=== PATIENT | female | born 1960 | race Caucasian/White ===

== ENCOUNTER → 2017-04-13 14:52 | Outpatient (CLI) | payer BC, SELFPAY ==
--- NOTE | 2017-04-13 14:59 | HPBI_ITS ---
MAMMOGRAPHY - BILATERAL SCREENING REASON FOR EXAM: Female, 56 years old. Routine annual screening examination. PERTINENT HISTORY: Grandmother with breast cancer. Aunt with breast cancer. TECHNIQUE: Digital bilateral breast angeles (3D mammographic acquisition) in the CC and MLO projections. 2-D mediolateral oblique (MLO) and craniocaudad (CC) views of both breasts were obtained. CAD: Full Field Digital Mammography with Computer Added Detection was performed. COMPARISON: Comparison is made with prior outside examination dated March 20, 2016. FINDINGS: Breast Composition: The breasts are extremely dense, which lowers the sensitivity of mammography. There are multiple well-defined nodular densities in both breasts. These most likely represent cysts. These have decreased both in size and numbers as compared to prior study. If there is no history of prior sonogram, correlation with bilateral ultrasound of the breast is recommended. No other significant abnormalities are identified. HPBI/SCREENING MAMM (CAD), BILAT IMPRESSION: Multiple bilateral breast nodules as described. These have decreased in size and number as compared to prior study. Correlation with ultrasound is recommended if none has been done previously. ASSESSMENT CATEGORY: BIRADS Category 0: Incomplete. Need additional imaging evaluation. A letter regarding these results will be sent to the patient by the facility within 30 days. Approximately 10% of breast cancers are not detected by mammography. A normal mammogram should not delay biopsy of a clinically suspicious abnormality. [id number] Electronically Signed: William Vasquez MD at 8:22 EST Tel [phone], Service support ,
== END ==
PROVIDERS: Visit Provider Obstetrics & Gynecology
DX: Z12.31 Encounter for screening mammogram for malignant neoplasm of breast (principal)
CPT/HCPCS: 77063; 77067

== ENCOUNTER → 2017-04-18 13:57 | Outpatient (CLI) | payer BC, SELFPAY ==
--- NOTE | 2017-04-18 13:59 | US_ITS ---
STUDY: ULTRASOUND BREAST - RIGHT REASON FOR EXAM: Female, 56 years old. A normal mammogram. TECHNIQUE: Axial and longitudinal images of the RIGHT breast were performed with a high resolution ultrasound transducer. COMPARISON: Comparison is made with prior mammogram dated April 13, 2017. FINDINGS: RIGHT Breast: Multiple cysts are seen. The largest measures 3.2 cm x 3 cm x 1 cm. This is at the 1:00 position breast by 1 cm from the nipple. IMPRESSION: Multiple cysts are seen throughout the breasts. ASSESSMENT CATEGORY: BIRADS Category 2: Benign. A letter regarding these results will be sent to the patient by the facility within 30 days. Electronically Signed: William Vasquez MD at 15:01 EST Tel [phone], Service support , STUDY: ULTRASOUND BREAST - LEFT REASON FOR EXAM: Female, 56 years old. Abnormal screening mammogram. TECHNIQUE: Axial and longitudinal images of the LEFT breast were performed with a high resolution ultrasound transducer. COMPARISON: Comparison is made with prior mammogram dated April 13, 2017. FINDINGS: LEFT Breast: Multiple cysts are seen. The largest is at the 3:00 position breast a 1 cm from nipple. This measures 2.7 cm x 2.1 cm x 0.9 cm. There is also evidence of a 1.6 cm x 1.5 cm x 1.3 cm cyst at the 4:00 position breast and 1 cm from nipple. Low-level echoes are seen within it. US/Breast Complete Bilateral IMPRESSION: Multiple cysts. Routine annual mammographic follow-up is recommended. ASSESSMENT CATEGORY: BIRADS Category 2: Benign. A letter regarding these results will be sent to the patient by the facility within 30 days. Electronically Signed: William Vasquez MD at 15:02 EST Tel [phone], Service support ,
== END ==
PROVIDERS: Visit Provider Nurse Practitioner Women's Health
DX: N60.01 Solitary cyst of right breast (principal)
CPT/HCPCS: 76641

== ENCOUNTER → 2018-05-30 07:10 | Outpatient (CLI) | payer BC, SELFPAY ==
--- NOTE | 2018-05-30 07:14 | BI_ITS ---
MAMMOGRAPHY - BILATERAL SCREENING 3-D PARKER SYNTHESIS REASON FOR EXAM: Female, 57 years old. Bilateral Screening 3-D tomosynthesis PERTINENT HISTORY: Family history of breast cancer in maternal grandmother, maternal aunt and maternal first cousin. History of bilateral breast aspirations with multiple cysts. TECHNIQUE: 2-D mammograms and 3-D Parker synthesis of the breast (s) were performed. CAD was performed. COMPARISON: April 13, 2017 FINDINGS: The breast composition is heterogeneously dense that can obscure small breast masses. There are multiple partially obscured masses in both breasts compatible with cysts. Scattered benign calcifications are seen. No dense spiculated masses or suspicious microcalcifications are identified. No architectural distortion is identified. There is no skin thickening or retraction. There has been no significant change since the prior study. BI/SCREENING MAMM (CAD), BILAT IMPRESSION: Stable findings compatible with cysts bilaterally. Routine yearly mammograms recommended. ASSESSMENT CATEGORY: BIRADS Category 2: Benign. A letter regarding these results will be sent to the patient by the facility within 30 days. FOLLOW UP RECOMMENDATION: Yearly follow up mammogram recommended. (A) Approximately 10% of breast cancers are not detected by mammography. A normal mammogram should not delay biopsy of a clinically suspicious abnormality. Electronically Signed: Derek Beltrán MD at 16:34 EDT , Service support ,
== END ==
PROVIDERS: Referring Provider Obstetrics & Gynecology; Visit Provider Obstetrics & Gynecology
DX: Z12.31 Encounter for screening mammogram for malignant neoplasm of breast (principal)
CPT/HCPCS: 77063; 77067

== ENCOUNTER → 2018-08-07 17:05 | Outpatient (CLI) | payer BC, SELFPAY ==
[2018-08-07 16:32] VITALS: BMI 25.0
[2018-08-13 09:44] LABS: HPV APTIMA, High Risk Negative (Negative)
== END ==
PROVIDERS: Referring Provider Obstetrics & Gynecology; Visit Provider Obstetrics & Gynecology
DX: Z12.4 Encounter for screening for malignant neoplasm of cervix (principal)
CPT/HCPCS: 87624; 88175; G0145

== ENCOUNTER → 2019-07-08 10:38 | Outpatient (CLI) | payer BC, SELFPAY ==
[2018-08-07 16:32] VITALS: BMI 25.0
--- NOTE | 2019-07-08 10:41 | BI_ITS ---
MAMMOGRAPHY - BILATERAL SCREENING REASON FOR EXAM: Female, 59 years old. Routine annual screening examination. PERTINENT HISTORY: Grandmother with breast cancer. Aunt with breast cancer. TECHNIQUE: Digital bilateral breast parker (3D mammographic acquisition) in the CC and MLO projections. 2-D mediolateral oblique (MLO) and craniocaudad (CC) views of both breasts were obtained. CAD: Full Field Digital Mammography with Computer Added Detection was performed. COMPARISON: Comparison is made with prior examination dated May 30, 2018 and April 13, 2017. FINDINGS: Breast Composition: The breasts are extremely dense, which lowers the sensitivity of mammography. Once again, there are multiple well-defined nodules in both breasts more prominent and larger in the right breast as compared to the left side. These are essentially unchanged and most likely of present multiple cysts. Prior ultrasound of the right breast dated April 18, 2017 and ultrasound of the left breast demonstrated multiple cysts bilaterally. Stable benign-appearing small axillary lymph nodes. No other significant abnormalities are identified. There has been no significant change since the prior study. BI/SCREEN MAMM (CAD) W/PARKER BILAT IMPRESSION: Stable bilateral screening mammogram. Yearly follow-up mammogram recommended. (A) ASSESSMENT CATEGORY: BIRADS Category 2: Benign. A letter regarding these results will be sent to the patient by the facility within 30 days. Approximately 10% of breast cancers are not detected by mammography. A normal mammogram should not delay biopsy of a clinically suspicious abnormality. [id number] Electronically Signed: William Vasquez, at 11:39 EDT , Service support ,
== END ==
PROVIDERS: Visit Provider Obstetrics & Gynecology
DX: Z12.31 Encounter for screening mammogram for malignant neoplasm of breast (principal)
CPT/HCPCS: 77063; 77067

== ENCOUNTER → 2021-01-17 15:53 | Outpatient (CLI) | payer BC, SELFPAY ==
--- NOTE | 2021-01-17 15:56 | BI_ITS ---
MAMMOGRAPHY - BILATERAL SCREENING REASON FOR EXAM: Female, 60 years old. Routine annual screening examination. PERTINENT HISTORY: Grandmother with breast cancer. Aunt with breast cancer. History of bilateral breast aspirations. TECHNIQUE: Digital bilateral breast parker (3D mammographic acquisition) in the CC and MLO projections. 2-D mediolateral oblique (MLO) and craniocaudad (CC) views of both breasts were obtained. CAD: Full Field Digital Mammography with Computer Added Detection was performed. COMPARISON: Comparison is made with prior study dated 07/08/2019 and 05/30/2018. FINDINGS: Breast Composition: The breasts are heterogeneously dense, which may obscure small masses. There are no dominant masses or suspicious calcifications. Since prior study, there has been a decrease in the size of the nodular densities in both breasts. These have been demonstrated to be cysts in the past. There is a residual prominent 2.2 cm x 2 cm nodule in the upper medial portion of the right breast. No other significant abnormalities are identified. BI/SCRN MAMM (CAD)W/PARKER BILAT IMPRESSION: Interval decrease in size of the previously seen nodular densities in both breasts as described. Prior sonogram demonstrated these to be multiple cysts. Yearly follow-up mammogram recommended. (A) ASSESSMENT CATEGORY: BIRADS Category 2: Benign. A letter regarding these results will be sent to the patient by the facility within 30 days. Approximately 10% of breast cancers are not detected by mammography. A normal mammogram should not delay biopsy of a clinically suspicious abnormality. [id number] Electronically Signed: William Vasquez MD at 9:07 EST , Service support ,
== END ==
PROVIDERS: Visit Provider Obstetrics & Gynecology
DX: Z12.31 Encounter for screening mammogram for malignant neoplasm of breast (principal); Z80.3 Family history of malignant neoplasm of breast
CPT/HCPCS: 77063; 77067

== ENCOUNTER → 2022-02-14 | Outpatient (CLI) | payer BC, SELFPAY ==
--- NOTE | 2022-02-14 09:13 | BI_ITS ---
MAMMOGRAPHY - BILATERAL SCREENING REASON FOR EXAM: Female, 61 years old. Routine annual screening examination. PERTINENT HISTORY: Grandmother with breast cancer. Aunt with breast cancer. History of prior bilateral breast aspirations. TECHNIQUE: Digital bilateral breast parker (3D mammographic acquisition) in the CC and MLO projections. 2-D mediolateral oblique (MLO) and craniocaudad (CC) views of both breasts were obtained. CAD: Full Field Digital Mammography with Computer Added Detection was performed. COMPARISON: Comparison is made with prior study 01/17/2021 and 07/08/2019. FINDINGS: Breast Composition: The breasts are heterogeneously dense, which may obscure small masses. Multiple bilateral well-defined nodules are seen in both breasts. The largest nodule in the left breast is in the retroareolar region and measures 2.9 size by 2.1 cm. The largest nodule in the left breast measures 2.2 cm x 1.6 cm. This is in the medial inferior aspect of the right breast. Correlation with ultrasound is recommended. No other significant abnormalities are identified. BI/SCRN MAMM (CAD)W/PARKER BILAT IMPRESSION: Bilateral breast nodules as described. Correlation with ultrasound is recommended. ASSESSMENT CATEGORY: BIRADS Category 0: Incomplete. Need additional imaging evaluation. A letter regarding these results will be sent to the patient by the facility within 30 days. Approximately 10% of breast cancers are not detected by mammography. A normal mammogram should not delay biopsy of a clinically suspicious abnormality. [id number] Electronically Signed: William Vasquez MD at 13:45 EST ,
== END | disposition home or self-care (01) ==
LOC: OPBI 09:11
PROVIDERS: Visit Provider Obstetrics & Gynecology
DX: Z12.31 Encounter for screening mammogram for malignant neoplasm of breast (principal); N63.10 Unspecified lump in the right breast, unspecified quadrant; Z80.3 Family history of malignant neoplasm of breast; N63.20 Unspecified lump in the left breast, unspecified quadrant
CPT/HCPCS: 77063; 77067

== ENCOUNTER → 2022-02-16 | Outpatient (CLI) | payer BC, SELFPAY ==
[2022-02-16 09:35] LABS: Hemoglobin A1c 5.4 % (3.8-5.6)
[2022-02-16 09:52] LABS: Vitamin D,25 Hydroxy 25.7 ng/mL
[2022-02-16 09:59] LABS: Cholesterol 294 mg/dL (200); High Density Lipoprotein 66 mg/dL; Triglycerides 130 mg/dL; Very Low Density Lipoprotein 26 mg/dL (5-40)
[2022-03-01 13:33] LABS: HPV APTIMA, High Risk Negative (Negative)
== END | disposition home or self-care (01) ==
PROVIDERS: Referring Provider Obstetrics & Gynecology; Visit Provider Obstetrics & Gynecology
DX: Z01.419 Encounter for gynecological examination (general) (routine) without abnormal findings (principal)
CPT/HCPCS: 36415; 80061; 82306; 83036; 84443; 87624; 88175; G0145

== ENCOUNTER → 2022-02-21 | Outpatient (CLI) | payer BC, SELFPAY ==
--- NOTE | 2022-02-21 07:52 | US_ITS ---
STUDY: ULTRASOUND BREAST - RIGHT REASON FOR EXAM: Female, 61 years old. Abnormal screening mammogram. TECHNIQUE: Axial and longitudinal images of the RIGHT breast were performed with a high resolution ultrasound transducer. # OF IMAGES: 56 COMPARISON: Comparison is made with prior mammogram dated 02/14/2022 Prior ultrasound of the right breast dated 04/18/2017. FINDINGS: RIGHT Breast: The inferior aspect of the right breast was examined with ultrasound. There is a 2.0 cm x 2 cm by 0.8 cm cyst at the 3 o''clock position the breast sonogram is from nipple. There is a 0.9 cm x 1 cm x 0.7 cm hypoechoic slightly lobular nodule at the 9 o''clock position of the breast at 1 cm from nipple. Increased vascularity is seen. Biopsy recommended. There is also evidence of a 1.3 cm x 1.1 cm x 0.7 cm predominantly cystic nodule with low-level echoes within it at the 2 o''clock position of the breast at 3 cm from the nipple. IMPRESSION: Dominant cyst as described. Hypoechoic slightly lobular nodules at the 9 o''clock and 2 o''clock position the breast as described. Biopsy recommended. ASSESSMENT CATEGORY: BIRADS Category 4: Suspicious - Biopsy Should Be Considered. A letter regarding these results will be sent to the patient by the facility within 30 days. Electronically Signed: William Vasquez MD at 12:24 EST , STUDY: ULTRASOUND BREAST - LEFT REASON FOR EXAM: Female, 61 years old. Abnormal screening mammogram. TECHNIQUE: Axial and longitudinal images of the LEFT breast were performed with a high resolution ultrasound transducer. # OF IMAGES: 56 COMPARISON: Comparison is made with prior mammogram dated 02/14/2022 and prior sonogram dated 04/18/2017. FINDINGS: LEFT Breast: There is a 2.8 synovitis 0.5 cm x 1.5 cm cyst at the 9 o''clock position of the breast. 1 cm from nipple. This corresponds to the mammographic findings. There is also evidence of a 1.9 cm x 2.2 cm x 1.1 cm cyst in the retroareolar region. US/Breast Limited Unilateral IMPRESSION: The mammographic findings correspond to the 2 cysts as described. ASSESSMENT CATEGORY: BIRADS Category 2: Benign. A letter regarding these results will be sent to the patient by the facility within 30 days. Electronically Signed: William Vasquez MD at 12:26 EST ,
== END | disposition home or self-care (01) ==
PROVIDERS: Visit Provider Obstetrics & Gynecology
DX: R92.2 Inconclusive mammogram (principal); N63.10 Unspecified lump in the right breast, unspecified quadrant
CPT/HCPCS: 76642

== ENCOUNTER → 2023-03-06 | Outpatient (CLI) | payer BC, SELFPAY ==
--- NOTE | 2023-03-06 12:17 | BI_ITS ---
MAMMOGRAPHY - BILATERAL SCREENING 3-D TOMOSYNTHESIS REASON FOR EXAM: Female, 62 years old. Routine annual screening mammogram. PERTINENT HISTORY: History of bilateral prior breast aspirations. Grandmother and contact with breast cancer, ages not identified. TECHNIQUE: 2-D mammograms and 3-D Tomosynthesis of the breast (s) were performed. CAD was performed. COMPARISON: February 14, 2022, January 17, 2021 FINDINGS: Stable heterogeneously dense fibroglandular tissue with multiple partially obscured circumscribed nodules compatible with cysts, left greater than right. Normal lymph nodes and scattered benign calcifications, unchanged. No dominant masses, suspicious microcalcifications, asymmetries, skin thickening or nipple retraction. BI/SCRN MAMM (CAD)W/PARKER BILAT IMPRESSION: No mammographic signs of malignancy. Routine annual screening mammogram recommended. ASSESSMENT CATEGORY: BIRADS Category 2: Benign. A letter regarding these results will be sent to the patient by the facility within 30 days. FOLLOW UP RECOMMENDATION: Yearly follow up mammogram recommended. (A) Approximately 10% of breast cancers are not detected by mammography. A normal mammogram should not delay biopsy of a clinically suspicious abnormality. Electronically Signed: Derek Beltrán MD at 10:29 EST ,
== END | disposition home or self-care (01) ==
LOC: OPBI 12:16
PROVIDERS: Referring Provider Obstetrics & Gynecology; Visit Provider Obstetrics & Gynecology
DX: Z12.31 Encounter for screening mammogram for malignant neoplasm of breast (principal)
CPT/HCPCS: 77063; 77067

== ENCOUNTER → 2024-04-07 | Outpatient (CLI) | payer SELFPAY ==
--- NOTE | 2024-04-07 15:30 | BI_ITS ---
MAMMOGRAPHY - BILATERAL SCREENING REASON FOR EXAM: Female, 63 years old. Routine annual screening examination. PERTINENT HISTORY: Grandmother with breast cancer. Aunt with breast cancer. TECHNIQUE: Digital bilateral breast parker (3D mammographic acquisition) in the CC and MLO projections. 2-D mediolateral oblique (MLO) and craniocaudad (CC) views of both breasts were obtained. CAD: Full Field Digital Mammography with Computer Added Detection was performed. COMPARISON: Comparison is made with prior study March 06, 2023 and February 14, 2022. FINDINGS: Breast Composition: The breasts are extremely dense, which lowers the sensitivity of mammography. Once again, there are scattered nodular densities in both breasts more prominent on the left side. Correlation with ultrasound recommended. No other significant abnormalities are identified. There has been no significant change since the prior study. BI/SCRN MAMM (CAD)W/PARKER BILAT IMPRESSION: Stable bilateral screening mammogram. Sonographic correlation recommended. ASSESSMENT CATEGORY: BIRADS Category 0: Incomplete. Need additional imaging evaluation. A letter regarding these results will be sent to the patient by the facility within 30 days. Approximately 10% of breast cancers are not detected by mammography. A normal mammogram should not delay biopsy of a clinically suspicious abnormality. [id number] Electronically Signed: William Vasquez MD at 11:15 EST ,
--- NOTE | 2024-04-11 13:31 | US_ITS ---
PROCEDURE: BREAST LIMITED bilateral. REASON FOR EXAM: Bilateral breast lumps. COMPARISON: Comparison is made with prior mammogram dated April 07, 2024. TECHNIQUE: Targeted bilateral breast ultrasound. FINDINGS: RIGHT: Ultrasound targeted to the mid medial inferior aspect of the right breast. Multiple cysts are seen. The largest cluster of cysts is seen in the inferior retroareolar region measuring 4.3 cm x 3.3 cm x 1.7 cm. There is also evidence of a 2.1 cm x 2 cm x 1 cm cyst at the 6 o'clock position of the breast at 3 cm from nipple as well as a 1.7 cm x 2.7 cm x 1.2 cm cyst in the superior retroareolar region of the right breast. LEFT: Ultrasound targeted to the retroareolar region at the left breast. Multiple cysts are seen. The largest cyst is in the superior retroareolar region measuring 4.6 cm x 3.8 cm 1.7 cm. A similar appearing cyst is seen adjacent to this measuring 3.5 cm x 4.1 cm x 1.5 cm. There is also evidence of a cluster of cysts in the retro areolar region measuring 2.1 cm x 2.5 cm x 0.9 cm. US/Breast Limited Unilateral IMPRESSION: Multiple bilateral breast cysts. BI-RADS 2: BENIGN. RECOMMEND ANNUAL MAMMOGRAPHIC SCREENING. BI-RADS 2: BENIGN. RECOMMEND ANNUAL MAMMOGRAPHIC SCREENING. Reading Location: [place] [id number]
== END | disposition home or self-care (01) ==
PROVIDERS: Referring Provider Obstetrics & Gynecology; Visit Provider Obstetrics & Gynecology
DX: Z12.31 Encounter for screening mammogram for malignant neoplasm of breast (principal); Z80.3 Family history of malignant neoplasm of breast
CPT/HCPCS: 77063; 77067

== ENCOUNTER 2024-04-11 13:20 | Outpatient (CLI) | payer BC, SELFPAY ==
--- NOTE | 2024-04-11 13:40 | US_ITS ---
EXAM: BREAST LIMITED UNILATERAL CLINICAL HISTORY: Abnormal screening mammogram. COMPARISON: Comparison is made with prior mammogram dated April 07, 2024. TECHNIQUE: Imaging of the central portion of the left breast was obtained. FINDINGS: Multiple cysts are seen as dictated on prior examination. US/Breast Limited Unilateral IMPRESSION: Multiple cysts. Reading Location: [facility]
== END 2024-04-11 23:59 | disposition home or self-care (01) ==
PROVIDERS: Referring Provider Obstetrics & Gynecology; Visit Provider Obstetrics & Gynecology
DX: R92.8 Other abnormal and inconclusive findings on diagnostic imaging of breast (principal); N60.02 Solitary cyst of left breast
CPT/HCPCS: 76642

== ENCOUNTER 2024-06-16 17:20 | Inpatient (IN) | payer BC, SELFPAY ==
--- NOTE | 2024-06-11 13:57 | PAT.ANE_ITS ---
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 When Was Last Pacemaker Check QUESTION #4 FULL TEXT: You/Your Family Experience fever (hyperthermia) with Anesthesia Last Oral Intake Last Oral intake: Last Oral Intake NPO since Meds taken in AM with sips of water? Meds patient instructed to take am of surgery PONV PONV - wallpaper scraper: PONV - wallpaper scraper Female Yes 06/11/24 13:51 HX of Motion Sickness No 06/11/24 13:51 HX of N/V After Surgery No 06/11/24 13:51 Non-Smoker Yes 06/11/24 13:51 Duration of Surgery greater No 06/11/24 13:51 than 60 minutes Number of Risk Factors 2 06/11/24 13:51 PONV Score Moderate Risk 06/11/24 13:51 Height & Weight Height & Weight: Anesthesia: Height & Weight Height 5 ft 4 in 04/23/24 08:26 Respiratory Assessment Respiratory Assessment - wallpaper scraper: Respiratory Tract Infection Hx - wallpaper scraper Hx Respiratory Tract Infection Yes: stomach flu 06/07/24 06/11/24 13:51 STOP Sleep Apnea STOP Sleep Apnea - wallpaper scraper: STOP Sleep Apnea - wallpaper scraper Hx Hypertension No 06/11/24 13:51 Hx Sleep Apnea No 06/11/24 13:51 CPAP No 01/18/17 09:51 BIPAP No 01/11/17 10:22 Do you snore loudly (louder No 06/11/24 13:51 than talking or can be heard Do you often feel tired/ No 06/11/24 13:51 fatigued/ sleepy during daytime? Has anyone observed you stop No 06/11/24 13:51 breathing during sleep? STOP Results Negative 06/11/24 13:51 QUESTION #5 FULL TEXT : Do you snore loudly (louder than talking or can be heard through closed doors)? 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 Specify any problems Hx of Preganancy in last 3 N/A 06/11/24 13:51 Months Nurse Filling Out Transfusion NBUCHER 06/11/24 13:51 & Questions: Date: 06/11/24 06/11/24 13:51 Time: 13:52 06/11/24 13:51 Patient unable to answer at this time (ie. confused, unrespo /Reproduction History /Reproductive History - wallpaper scraper: /Reproductive Hx- wallpaper scraper Hx Now No 06/11/24 13:51 Gestational Age (in weeks): EDC: Hx Hx Para Hx Section SAB No 06/11/24 13:51 PFSH Medical History Wears glasses Wears contact lenses Former smoker Home Medications ?Medication ?Instructions ?Recorded ?Last Taken ?Type estradiol 0.01% (0.1 mg/gram) See Rx Instructions vagi nal 04/21/24 Unknown Rx vaginal cream (Estrace) .COMPLEX #42.5 grams diphenhydramine HCl 25 mg capsule 25 mg PO QHS PRN sle ep 04/23/24 Unknown History (Sleep Aid (diphenhydramine)) Allergy/AdvReac Type Severity Reaction Status Date / Time No Known Allergies Allergy Verified 06/11/24 13:50 Family History Father Cancer lung-smoking Mother Diabetes Grandmother Breast cancer Aunt Breast cancer Surgical History Hx of colonoscopy varicose vein surgery H/O breast biopsy Social History (Updated 04/23/24 @ 08:22 by Gertrude Sarmiento) household members: spouse current occupational status: employed Smoking Status: Former smoker alcohol intake: current details: social substance use type: does not use caffeine: Yes frequency: 1-2 times per week seatbelt use: always do you feel safe at home: Yes additional [facility] Patient works at [employer] Audit: Pertinent Findings Pertinent Findings EKG Perinent findings: 03/03/2015. Sinus bradycardia 51 bpm. Low voltage QRS. Cannot rule out anterior infarct, age undetermined. Recommendation Anesthesia Recommendation Anesthesia recommendation: OPTIMIZED for anesthesia
[2024-06-16] VITALS (20 sets, daily range): BP systolic 78–114; BP diastolic 49–75; PULSE 56–96; RESP 12–18; TEMP 36.1–37.2; O2SAT 89–100; BMI 29.1
--- NOTE | 2024-06-16 07:59 | PCM.PRE.AN2 ---
ASA Classification* ASA Classification ASA Classification: 2 Assessment & Plan Anesthesia* Anesthesia Assessment Anesthesia Assessment: Discussed sedation and/or anesthesia options, risks, benefits, and alternatives with patient/parents/legal guardian/POA. Questions invited. The patient/parents/legal guardian/POA seems to understand and agrees to proceed with anesthesia plan. Reviewed the physical assessment, medical history, allergy history and patient home medications list prior to surgery/procedure/anesthetic and documented any changes. Performed airway and anesthesia risk assessments. Anesthesia Type Anesthesia Type: MAC Anesthesia Focused Assessment* Temperature: 97.0 F Pulse Rate: 91 Blood Pressure: 107/74 Respiratory Rate: 18 Pulse Ox: 96 Airway Assessment Mouth opens: >3 cm Mallampati Score: II Focused Labs Anesthesia Preop lab: CBC WBC 6.7 K/mm3 (4.4-11.0) 01/11/17 10:35 01/11/17 RBC 4.29 M/mm3 (4.2-5.4) 01/11/17 10:35 01/11/17 Hgb 13.3 g/dl (12.0-15.0) 01/11/17 10:35 01/11/17 Hct 41.7 % (37-47) 01/11/17 10:35 01/11/17 Plt Count 343 K/mm3 (150-450) 01/11/17 10:35 01/11/17 CHEMISTRY Potassium 3.9 mmol/L (3.5-5.1) 01/11/17 10:35 01/11/17 Sodium 141 mmol/L (136-145) 01/11/17 10:35 01/11/17 BUN 20 mg/dL (7-18) H 01/11/17 10:35 01/11/17 Creatinine 0.73 mg/dL (0.55-1.02) 01/11/17 10:35 01/11/17 Glucose 83 mg/dL (70-110) 01/11/17 10:35 01/11/17 TSH 1.50 uIU/mL (0.358-3.74) 02/16/22 09:03 02/16/22 COAG Pre-Assessment Diagnosis/Proposed Procedure Planned Operative Procedure(s): cscope Anesthesia History 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 When Was Last Pacemaker Check QUESTION #4 FULL TEXT: You/Your Family Experience fever (hyperthermia) with Anesthesia Last Oral Intake Last Oral intake: Last Oral Intake NPO since 05:00 06/16/24 07:49 Meds taken in AM with sips of water? Meds patient instructed to take am of surgery PONV PONV - grinder setup operator: PONV - grinder setup operator Female Yes 06/11/24 13:51 HX of Motion Sickness No 06/11/24 13:51 HX of N/V After Surgery No 06/11/24 13:51 Non-Smoker Yes 06/11/24 13:51 Duration of Surgery greater No 06/11/24 13:51 than 60 minutes Number of Risk Factors 2 06/11/24 13:51 PONV Score Moderate Risk 06/11/24 13:51 Height & Weight Height & Weight: Anesthesia: Height & Weight Height 5 ft 4 in 06/16/24 07:49 Weight: 77 kg 06/16/24 07:49 Body Mass Index (BMI) 29.1 06/16/24 07:49 Respiratory Assessment Respiratory Assessment - grinder setup operator: Respiratory Tract Infection Hx - grinder setup operator Hx Respiratory Tract Infection Yes: stomach flu 06/07/24 06/11/24 13:51 STOP Sleep Apnea STOP Sleep Apnea - grinder setup operator: STOP Sleep Apnea - grinder setup operator Hx Hypertension No 06/11/24 13:51 Hx Sleep Apnea No 06/11/24 13:51 CPAP No 01/18/17 09:51 BIPAP No 01/11/17 10:22 Do you snore loudly (louder No 06/11/24 13:51 than talking or can be heard Do you often feel tired/ No 06/11/24 13:51 fatigued/ sleepy during daytime? Has anyone observed you stop No 06/11/24 13:51 breathing during sleep? STOP Results Negative 06/11/24 13:51 QUESTION #5 FULL TEXT : Do you snore loudly (louder than talking or can be heard through closed doors)? 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 Specify any problems Hx of Preganancy in last 3 N/A 06/11/24 13:51 Months Nurse Filling Out Transfusion NBUCHER 06/11/24 13:51 & Questions: Date: 06/11/24 06/11/24 13:51 Time: 13:52 06/11/24 13:51 Patient unable to answer at this time (ie. confused, unrespo /Reproduction History /Reproductive History - grinder setup operator: /Reproductive Hx- grinder setup operator Hx Now No 06/11/24 13:51 Gestational Age (in weeks): EDC: Hx Hx Para Hx Section SAB No 06/11/24 13:51 PFSH Medical History Wears glasses Wears contact lenses Former smoker Home Medications ?Medication ?Instructions ?Recorded ?Last Taken ?Type estradiol 0.01% (0.1 mg/gram) See Rx Instructions vaginal 04/21/24 Unknown Rx vaginal cream (Estrace) .COMPLEX #42.5 grams diphenhydramine HCl 25 mg capsule 25 mg PO QHS PRN sleep 04/23/24 06/15/24 History (Sleep Aid (diphenhydramine)) Allergy/AdvReac Type Severity Reaction Status Date / Time No Known Allergies Allergy Verified 06/16/24 07:49 Family History Father Cancer lung-smoking Mother Diabetes Grandmother Breast cancer Aunt Breast cancer Surgical History Hx of colonoscopy varicose vein surgery H/O breast biopsy Social History household members: spouse current occupational status: employed Smoking Status: Former smoker alcohol intake: current details: social substance use type: does not use caffeine: Yes frequency: 1-2 times per week seatbelt use: always do you feel safe at home: Yes additional [facility] Patient works at [employer] Review of Systems (Anesthesia) ROS Narrative System reviewed and no additional complaints, except as documented.
--- NOTE | 2024-06-16 08:11 | HP.PCM_ITS ---
[facility] - General General Date of Service: 06/16/24 HPI Narrative GANESH ANAYA, is a 63 F who presents for a screening colonoscopy. Patient last colonoscopy was about 16 years ago normal per patient by Dr. Olvera. Patient denies any family history of colon cancer. Patient has bowel movements daily denies any blood. Patient denies any chronic abdominal pain/nausea/vomiting/reflux. PFSH Medical History Wears glasses Wears contact lenses Former smoker Home Medications ?Medication ?Instructions ?Recorded ?Last Taken ?Type estradiol 0.01% (0.1 mg/gram) See Rx Instructions vagi nal 04/21/24 Unknown Rx vaginal cream (Estrace) .COMPLEX #42.5 grams diphenhydramine HCl 25 mg capsule 25 mg PO QHS PRN sle ep 04/23/24 06/15/24 History (Sleep Aid (diphenhydramine)) Allergy/AdvReac Type Severity Reaction Status Date / Time No Known Allergies Allergy Verified 06/16/24 07:49 Family History Father Cancer lung-smoking Mother Diabetes Grandmother Breast cancer Aunt Breast cancer Surgical History Hx of colonoscopy varicose vein surgery H/O breast biopsy Social History household members: spouse current occupational status: employed Smoking Status: Former smoker alcohol intake: current details: social substance use type: does not use caffeine: Yes frequency: 1-2 times per week seatbelt use: always do you feel safe at home: Yes additional social history: Emir Varela Patient works at [employer] Past Medical/Surgical History Planned Operation Planned Operative Procedure(s): cscope S.O.S: No Previous Hospitalizations/Surgeries HX Hospitalizations: No HX of Surgeries: TUBAL LIGATION AGE 40 COLONOSCOPY AGE 50 left vein stripping 2015 Any Problems With Anesthesia: No You/Your Family Experience Fever (Hyperthermia) With Anes: No Cholinesterase deficiency: No Cardiovascular Hx Chest Pain within Last 2 months: No Hx of Irregular Heartbeat and/or Afib: No Hx Heart Attack: No Hx Congestive Heart Failure: No Hx Rheumatic Fever: No Hx Hypertension: No Hx Internal Defibrillator: No Hx Pacemaker: No Hx Cardiac Catheterization: No Hx Cardiac Surgery/Stents/Etc.: No Hx Stress Test: No Hx Pain in Legs when Walking/Leg Cramps: Yes (right leg pain) Respiratory Chronic Cough: No HX of Shortness of Breath: No Hoarseness: No Hx Chronic Obstructive Pulmonary Disease (COPD): No Hx Asthma: No Hx Emphysema: No Hx Sleep Apnea: No CPAP: No BIPAP: No Hx Respiratory Tract Infection/Cold (presently): Yes (stomach flu 06/07/24) Do You Snore Loudly (louder than talking or can be heard): No Do You Often Feel Tired/ Fatigued/ Sleepy Dring Daytime?: No Has Anyone Observed You Stop Breathing During Sleep?: No Result (for STOP score): Negative Hx Smoking: Yes (QUIT SMOKING 15-20 YEARS AGO) Smoking Status: Former smoker Gastrointestinal Hx Gastrointestinal Disorders: No Hx Gastrointestinal Bleed: No Hx Ulcer: No Hx Hiatal Hernia: No Difficulty Chewing/Swallowing: No Special diet followed at home: No Hx Unplanned Weight Loss of 20#: No HX Unplanned Weight Gain of 20#: No Neurological Hx Seizures: No HX Syncope/Blackout Spells/Unconsciousness: No Hx Transient Ischemic Attacks (TIA): No Hx Multiple Sclerosis: No Hx Parkinson's Disease: No Hx Head/Neck Injury: No Hx Headaches: No Hx Back Injury/Pain: No Recent Onset of Speech Difficulty: No Restless Legs: No Does patient have nerve stimulator: No Blood Disorder Hx Leukemia: No Bleeding Tendencies: No Hx Deep Vein Thrombosis: No Hx High Cholesterol: No Blood Transmitted Disease: No Hx Hepatitis: No Hx Cirrhosis: No Hx Anemia: No Hx Blood Disorders: No Reproduction : No Is Patient Lactating: No Hx Hysterectomy: No Hx Tubal Ligation: No Are You Post Menopause: Yes Genitourinary Hx Renal Disease: No Musculoskeletal Hx Arthritis: No Hx Rheumatoid Arthritis: No Hx Gout: No Recent Onset of an Orthopedic Problem: No Endocrine Hx Diabetes: No Thyroid Disease: No Hx Steroid Therapy: No Psycho/Social Hx Substance Use: No Hx Alcohol Use: Yes (1-2 BEERS/OR MIXED DRINK 5X/WEEK) Hx Anxiety: No Hx Depression: No Mental Illness: No Hx Dementia: No Miscellaneous Hx Cancer: No Recent Exposure to Contagious Disease: No Hx of C-Diff: No Any Loose Teeth: No (.) Allergies No Known Allergies Allergy (Verified 06/16/24 07:49) Maternal: Family History Father Cancer lung-smoking Mother Diabetes Grandmother Breast cancer Aunt Breast cancer - (The patient's father at the age of 73 with a history of lung cancer. Patient's mother at the age of 87 with a history of diabetes mellitus. Her mother with sepsis related to urosepsis.) Discharge Is Pt Admitted From a [facility], or a [facility]: No From the PAT History Number of Risk Factors: 2 Vital Signs Vital Signs Vital Signs: 06/16/24 07:49 06/16/24 07:49 06/16/24 07:59 Temperature 97.0 F L 97.0 F L Temperature Source Temporal Pulse Rate 91 91 Respiratory Rate 18 18 Respiratory Pattern Normal Blood Pressure 107/74 107/74 Blood Pressure Mean 85 Blood Pressure Source Monitor Blood Pressure Position Semi-Fowlers Blood Pressure Location Right Arm Pulse Ox 96 96 Oxygen Delivery Method Room Air Weight Weight: 169 lb 12.095 oz Body Mass Index (BMI) 29.1 Physical Exam Const alert, oriented x3 and no apparent distress HEENT normocephalic and head/scalp atraumatic Resp normal respiratory effort Cardio regular rate GI soft to palpation and non-tender; Negative for non-distended Palpation: Negative for guarding Extremity no clubbing, cyanosis or edema Skin no rashes or lesions noted Neuro CN's II-XII intact bilaterally Psych mental status grossly normal Assessment & Plan Assessment/Plan (1) Encounter for screening for malignant neoplasm of colon: Surgery Risks - Colonoscopy I discussed with the patient the risks of the procedure: Yes Risks Include but are not Limited To: Risks include but are not limited to: Bleeding, perforation requiring further surgery, inability to complete colonoscopy requiring barium enema.
--- NOTE | 2024-06-16 09:00 | COL._PTH ---
PATIENT: GANESH ANAYA LOC: MS3 U#:[id number] AGE/SX: 63/F ROOM: TN317 RE06/16/[address]: Dr. Parisa Banda MD : 1960 BED: 1 DIS: 06/20/2024 SPEC #: [id number] RECD: 06/17/24 09:00 STATUS: EUNICE ANGELINA #: [id number] JOANNE: 06/16/24 09:[address]: Parisa Banda DEPT: SURGICAL PATHOLOGY RECD BY: Rick Lawson ENTERED: 06/17/24 09:02 SP TYPE: COLON OTHR DR: No Primary Care Phys Tissues: A - Ileum, NOS Procedures: Surgery Specimen Level HEADER OPERATION: Laparoscopic, perforated appendectomy, conversion to open PRE-OP DIAGNOSIS: CT abdomen pelvis which is consistent with acute appendicitis-likely perforated with a small foci of air larger area of inflammation, encounter for screening for malignant neoplasm of colon TISSUE SUBMITTED: A- Ileocetomy MICROSCOPIC DIAGNOSIS A. Ileum and cecum, acute appendicitis, ileocecectomy: * Acute appendicitis with perforation and suppurative inflammation of adjacent pericolonic adipose. * Ileocecal valve with prominent reactive mucosal lymphoid tissue. * Viable proximal (ileal) end resection margin with no specific pathologic change. * Viable distal (cecal) end resection margin with focal acute inflammation and focal serosal adhesions. * Four pericolonic lymph nodes, benign (0/4). MICROSCOPIC DESCRIPTION Slides are reviewed. GROSS DESCRIPTION A. Received in formalin in a container labeled with the patient's name, date of , and ileocecectomy is an ileocecectomy specimen received with 2 stapled margins. The terminal ileum is 9.0 cm in length by 1.5 cm in diameter and the cecum is 9.2 x 5.5 x 4.5 cm. The serosa of the cecum exhibits dense and shaggy amaro-brown adhesions with adherent possible exudate. No intact appendix is discovered. The serosa of the ileum is unremarkable. The specimen is opened to reveal that the 0.2 x 0.2 cm appendiceal orifice is able to be probed through the dense adhesions with multiple possible shaggy perforations (inked blue). The possible tip appears obliterated. A 0.3 cm possible appendiceal lumen is identified; however, the majority of the probable appendiceal remnants are occupied by a large ?4 x 4 cm red and soft, apparent abscess cavity. No mass-like lesion is grossly recognized. The remaining mucosa is amaro-pink with typical transverse folds and an average wall thickness of 0.4 cm. Sectioning of the ileocecal valve reveals submucosal amaro-yellow, glistening adipose tissue. Network Desktop Support Specialist sections:A1. Proximal margin, en faceA2. Distal margin, en face and bisectedA3-4. Appendiceal orifice, bivalved with possible perforation in A3 (inked blue)A5-6. Possible obliterated tip of appendix, bisected (inked blue)A7-8. Abscess cavity with adherent exudateA9. Ileocecal valve with submucosal adipose tissue. [facility] 06-17-2024 CPT:48029
--- NOTE | 2024-06-16 09:00 | FLU_PTH ---
PATIENT: GANESH ANAYA LOC: MS3 U#:[id number] AGE/SX: 63/F ROOM: MO317 RE06/16/[address]: Dr. Parisa Banda MD : 1960 BED: 1 DIS: 06/20/2024 SPEC #: [id number] RECD: 06/16/24 09:56 STATUS: EUNICE REQ #: [id number] JOANNE: 06/16/24 09:[address]: Parisa Banda DEPT: CYTOLOGY RECD BY: Jami Henao ENTERED: 06/16/24 10:51 SP TYPE: Fluid OTHR DR: No Primary Care Phys Tissues: A - Cecum, NOS Procedures: Special Stain Group II Surgery Specimen Level IV Cytospin Fluid HEADER OPERATION: Colonoscopy, biopsy PRE-OP DIAGNOSIS: Encounter for screening for malignant neoplasm of colon TISSUE SUBMITTED: A- Fluid collected in Luki tube from cecum for cytology DIAGNOSIS CYTOLOGY A. Cecum fluid: * No malignant cells identified. * Amorphous debris. CYTOLOGY STUDY Slides are reviewed. CYTOLOGY GROSS A. Received is 15 ml of pink turbid fluid labeled with the patient's name and and designated per the requisition as Cecum fluid. Submitted for cytology preparation (cytospin x1, cellblock x1). 06/16/2024 CPT: [id number]
--- NOTE | 2024-06-16 09:00 | COLBX_PTH ---
PATIENT: GANESH ANAYA LOC: MS3 U#:[id number] AGE/SX: 63/F ROOM: MA317 RE06/16/[address]: Dr. Parisa Banda MD : 1960 BED: 1 DIS: 06/20/2024 SPEC #: [id number] RECD: 06/16/24 09:56 STATUS: EUNICE REVon #: [id number] JOANNE: 06/16/24 09:[address]: Parisa Banda DEPT: SURGICAL PATHOLOGY RECD BY: Jami Henao ENTERED: 06/16/24 10:48 SP TYPE: COLON BX OT DR: No Primary Care Phys Tissues: A - Ascending colon Procedures: Surgery Specimen Level IV HEADER OPERATION: Colonoscopy, biopsy PRE-OP DIAGNOSIS: Encounter for screening for malignant neoplasm of colon TISSUE SUBMITTED: A- Ascending colon polyp biopsy MICROSCOPIC DIAGNOSIS A. Ascending colon, polyp, biopsy: * Tubular adenoma. MICROSCOPIC DESCRIPTION Slides are reviewed. GROSS DESCRIPTION A. Received in formalin in a container labeled with the patient's name, date of , and ascending polyp biopsy is a 0.3 x 0.3 x 0.3 cm fragment of amaro-pink mucosal tissue. Submitted in toto in A1. [facility] 06-16-2024 CPT:[id number]
--- NOTE | 2024-06-16 09:00 | FLU_PTH ---
PATIENT: GANESH ANAYA LOC: MS3 U#:[id number] AGE/SX: 63/F ROOM: MA317 RE06/16/[address]: Dr. Parisa Banda MD : 1960 BED: 1 DIS: 06/20/2024 SPEC #: [id number] RECD: 06/16/24 09:56 STATUS: EUNICE REQ #: [id number] JOANNE: 06/16/24 09:[address]: Parisa Banda DEPT: CYTOLOGY RECD BY: Jami Henao ENTERED: 06/16/24 10:51 SP TYPE: Fluid OTHR DR: No Primary Care Phys Tissues: A - Cecum, NOS Procedures: Special Stain Group II Surgery Specimen Level IV Cytospin Fluid HEADER OPERATION: Colonoscopy, biopsy PRE-OP DIAGNOSIS: Encounter for screening for malignant neoplasm of colon TISSUE SUBMITTED: A- Fluid collected in Luki tube from cecum for cytology DIAGNOSIS CYTOLOGY A. Cecum fluid: * No malignant cells identified. * Amorphous debris. CYTOLOGY STUDY Slides are reviewed. CYTOLOGY GROSS A. Received is __ ml of ___ fluid labeled with the patient's name and and designated per the requisition as Cecum fluid. Submitted for cytology preparation (cytospin x1, cellblock x1). 06/16/2024 CPT: [id number]
--- NOTE | 2024-06-16 09:56 | OP.COLON_ITS ---
Patient Name: Genia Herron Procedure Date: 06/16/2024 9:11 AM Date of : 1960 Age: 63 Procedure: Colonoscopy Indications: Screening for colorectal malignant neoplasm Providers: Parisa Banda MD Referring MD: Parisa Banda MD Medicines: Monitored Anesthesia Care Patient Profile: This is a 63 year old female. Last Colonoscopy: more than 10 years ago. Complications: No immediate complications. Procedure: Pre-Anesthesia Assessment: - Prior to the procedure, a History and Physical was performed, and patient medications and allergies were reviewed. The patient's tolerance of previous anesthesia was also reviewed. The risks and benefits of the procedure and the sedation options and risks were discussed with the patient. All questions were answered, and informed consent was obtained. Prior Anticoagulants: The patient has taken no anticoagulant or antiplatelet agents. ASA Grade Assessment: Per anesthesia. After reviewing the risks and benefits, the patient was deemed in satisfactory condition to undergo the procedure. After I obtained informed consent, the scope was passed under direct vision. Throughout the procedure, the patient's blood pressure, pulse, and oxygen saturations were monitored continuously. The Colonoscope was introduced through the anus and advanced to the terminal ileum. The colonoscopy was performed without difficulty. The patient tolerated the procedure well. The quality of the bowel preparation was good. Scope In: 9:19:11 AM Scope Withdrawal Time 0 hours 15 minutes 40 seconds Scope Out: 9:43:30 AM Total Procedure Duration Time 0 hours 24 minutes 19 seconds Findings: The perianal and digital rectal examinations were normal. A less than 5 mm polyp was found in the ascending colon. The polyp was sessile. The polyp was removed with a cold biopsy forceps. Resection and retrieval were complete. There is noted to be mucus from appendiceal orifice this, and this area was irrigated and still had more mucus. No mucus seen in terminal ileum. The terminal ileum appeared normal. The exam was otherwise without abnormality on direct and retroflexion views. Impression: - One less than 5 mm polyp in the ascending colon, removed with a cold biopsy forceps. Resected and retrieved. - The examined portion of the ileum was normal. - The examination was otherwise normal on direct and retroflexion views. Recommendation: - Discharge patient to home [Means]. - Perform a CT scan (computed tomography) of abdomen with contrast and pelvis with contrast today. - Repeat colonoscopy in 5 years for surveillance based on pathology results. - Continue present medications. Procedure Code(s): --- Professional --- 74069, PT, Colonoscopy, flexible; with biopsy, single or multiple Diagnosis Code(s): --- Professional --- Z12.11, Encounter for screening for malignant neoplasm of colon D12.2, Benign neoplasm of ascending colon CPT copyright 2021 [employer]. All rights reserved. The codes documented in this report are preliminary and upon certified coder review may be revised to meet current compliance requirements. MD Parisa Lerma MD 06/16/2024 9:55:53 AM This report has been signed electronically. Number of Addenda: 0 Note Initiated On: 06/16/2024 9:11 AM
--- NOTE | 2024-06-16 09:56 | OP.CCLET_ITS ---
06/16/2024 No Primary Care Physician Re : Colonoscopy procedure for Genia Herron Dear Care Physician This procedure was performed on Sunday, June 16, 2024. My impressions and recommendations are as follows: Impressions : - One less than 5 mm polyp in the ascending colon, removed with a cold biopsy forceps. Resected and retrieved. - The examined portion of the ileum was normal. - The examination was otherwise normal on direct and retroflexion views. Recommendations : - Discharge patient to home [Means]. - Perform a CT scan (computed tomography) of abdomen with contrast and pelvis with contrast today. - Repeat colonoscopy in 5 years for surveillance based on pathology results. - Continue present medications. My findings are described in the full procedure note, which is enclosed. If I can be of further assistance, please feel free to contact me at Doctor phone number(s): , Work: . Sincerely, MD Parisa Lerma MD 06/16/2024 9:55:53 AM This report has been signed electronically.
--- NOTE | 2024-06-16 09:57 | PCM.POST.ANE ---
Anesthesia: Postop Eval I Current Vital Signs Temperature: 97 F Pulse Rate: 67 Blood Pressure: 93/62 Respiratory Rate: 16 Pulse Ox: 99 Oxygen Delivery Method: Room Air Assessment Airway patent: Yes Spontaneous unlabored respirations: Yes Mental status: Awake and Calm nausea: No Vomiting: No Anesthesia Complication: No Fluid Hydration Crystalloid volume administer (ml): 55 Total IV fluid infused: 55 Progress Note Anesthesia document: Postop Eval 1 completed: Yes
--- NOTE | 2024-06-16 10:34 | PCM.POSTANE2 ---
Anesthesia Postop Eval I Sum Postop Eval Completion status Anesthesia document: Postop Eval 1 completed: Yes Anesthesia Postop Eval I Summary Anesthesia Postop Eval I Summary: Anesthesia Postop Eval I: Assessment Summary Airway patent Yes 06/16/24 09:57 [email or web address] Spontaneous unlabored Yes 06/16/24 09:57 [email or web address] respirations Mental status Awake,Calm 06/16/24 09:57 [email or web address] nausea No 06/16/24 09:57 [email or web address] Vomiting No 06/16/24 09:57 [email or web address] Anesthesia Postop Eval I: Fluid Summary Crystalloid volume administer 55 06/16/24 09:57 [email or web address] (ml) Colloids volume administered ( ml) Blood Product volume administered (ml) Total IV fluid infused 55 06/16/24 09:57 [email or web address] Anesthesia Postop Eval I: Summary Notes Anesthesia Complication No 06/16/24 09:57 [email or web address] Anesthesia Complication Comment: Post-operative progress note Anesthesia: Postop Eval II Evaluation Mental status: Awake Pain Level: 0 nausea: No Vomiting: No
--- NOTE | 2024-06-16 12:35 | CT_ITS ---
EXAM: CT Abdomen and Pelvis With Intravenous Contrast CLINICAL INDICATION: POSSIBLE APPENDICEAL MUCOCELE TECHNIQUE: Axial computed tomography images of the abdomen and pelvis with intravenous contrast. This CT exam was performed using one or more of the following dose reduction techniques: automated exposure control, adjustment of the mA and/or kV according to patient size, and/or use of iterative reconstruction technique. COMPARISON: No relevant prior studies available. FINDINGS: LUNG BASES: Unremarkable. No mass. No consolidation. ABDOMEN: LIVER: Hepatomegaly with fatty infiltration. GALLBLADDER AND BILE DUCTS: Unremarkable. No calcified stones. No ductal dilation. PANCREAS: Unremarkable. No mass. No ductal dilation. SPLEEN: Unremarkable. No splenomegaly. ADRENALS: Unremarkable. No mass. KIDNEYS AND URETERS: Unremarkable. No solid mass. No hydronephrosis. STOMACH AND BOWEL: Unremarkable. No obstruction. No mucosal thickening. PELVIS: APPENDIX: Mucosal thickening in the appendix with surrounding inflammation. Appendix measures 1.6 cm in diameter. BLADDER: Unremarkable. No mass. REPRODUCTIVE: Unremarkable as visualized. ABDOMEN and PELVIS: INTRAPERITONEAL SPACE: Unremarkable. No free air. No significant fluid collection. BONES/JOINTS: No acute fracture. No dislocation. SOFT TISSUES: Umbilical hernia containing fat. VASCULATURE: Unremarkable. No abdominal aortic aneurysm. LYMPH NODES: Unremarkable. No enlarged lymph nodes. CT/Abdomen/Pelvis WITH Contrast IMPRESSION: 1. Mucosal thickening in the appendix with surrounding inflammation. Appendix measures 1.6 cm in diameter. Findings are consistent with acute appendicitis. Possible contained micro perforation. 2. Hepatomegaly with fatty infiltration. 3. Umbilical hernia containing fat. Red Alert: Acute appendicitis with possible contained micro perforation. The critical information above was relayed directly by me by telephone to Parisa Martínez on 06/16/2024 at 1:36 pm with readback verification. Reading [facility]
[2024-06-16 13:38] LABS: Absolute Lymphocyte Count 1.08 X10^3/uL (0.83-4.51); Absolute Neutrophil Count 11.3 X10^3/uL (2.0-7.7); Basophil# 0.03 X10^3/uL; Basophil% 0.2 % (0-1); Eosinophil# 0.02 X10^3/uL; Eosinophils% 0.2 % (0-5); Hematocrit 42.7 % (37-47); Hemoglobin 14.1 g/dL (12.0-15.0); Lymphocyte # 1.08 X10^3/ul (0.83-4.51); Lymphocyte % 8.6 % (19-41); Mean Corpuscular Hgb 31.5 pg (27.0-32.0); Mean Corpuscular Volume 95.5 fL (81-99); Mean Platelet Vol. 8.9 fl (6.2-12.0); Monocyte# 0.13 X10^3/uL; NRBC Flagged by Analyzer 0 % (0-5); Neutrophil # 11.31 X10^3/uL (2.7-7.7); Neutrophil % 89.6 % (47-70); Platelet Count 740 K/mm3 (150-450); RBC Distribution Width CV 12.1 % (11.6-14.6); RBC Distribution Width SD 42.6 fl (35.1-43.9); Red Blood Count 4.47 M/mm3 (4.2-5.4); White Blood Count 12.6 K/mm3 (4.4-11.0)
[2024-06-16] MEDS: Piperacil/Tazobactam 3.375 GM in 0.9% Normal Saline (50mL MB+) 50 ML IV ×2 (14:07→22:42)
[2024-06-16] MEDS: 0.9% Normal Saline (1000mL) 1,000 ML 15 ML IV (14:07)
--- NOTE | 2024-06-16 14:07 | PCM.PN.BLA ---
Progress Note Discussed with patient and her after the procedure there was some/white discharge draining from the appendix. Get a CT abdomen pelvis which is consistent with acute appendicitis?likely perforated with a small foci of air larger area of inflammation per my read. Patient did have about a week history of what she thought was the flu with some back pain and abdominal pain?may have been appendicitis which perforated time. Patient is aware with plan for laparoscopic appendectomy, possible bowel resection, possible open along with the risk but not limited to bleeding, infection/abscess, injury to another organ (small bowel, colon, etc.), adhesion, hernia at incision sites, and anesthesia. Did start Zosyn also got CBC which showed white blood count 12.6. Parisa Banda M.D. Pager: [phone] [facility] [address] [place] [address], [address] [place] [address] Office: [phone]
--- NOTE | 2024-06-16 14:21 | PRE.ANES_ITS ---
ASA Classification* ASA Classification ASA Classification: 2 and E Assessment & Plan Anesthesia* Anesthesia Assessment Anesthesia Assessment: Discussed sedation and/or anesthesia options, risks, benefits, and alternatives with patient/parents/legal guardian/POA. Questions invited. The patient/parents/legal guardian/POA seems to understand and agrees to proceed with anesthesia plan. Reviewed the physical assessment, medical history, allergy history and patient home medications list prior to surgery/procedure/anesthetic and documented any changes. Performed airway and anesthesia risk assessments. Anesthesia Type Anesthesia Type: General (Had contrast this am. Had mac/local for colonoscopy this AM) Anesthesia Focused Assessment* Temperature: 97.5 F Pulse Rate: 75 Blood Pressure: 92/61 Respiratory Rate: 16 Pulse Ox: 98 Airway Assessment Mouth opens: >3 cm Mallampati Score: II Focused Labs Anesthesia Preop lab: CBC WBC 12.6 K/mm3 (4.4-11.0) H 06/16/24 13:20 5 RBC 4.47 M/mm3 (4.2-5.4) 06/16/24 13:20 06/16/24 Hgb 14.1 g/dL (12.0-15.0) 06/16/24 13:20 06/16/24 Hct 42.7 % (37-47) 06/16/24 13:20 06/16/24 Plt Count 740 K/mm3 (150-450) H 06/16/24 13:20 06/16/24 CHEMISTRY Potassium 3.9 mmol/L (3.5-5.1) 01/11/17 10:35 01/11/17 Sodium 141 mmol/L (136-145) 01/11/17 10:35 01/11/17 BUN 20 mg/dL (7-18) H 01/11/17 10:35 01/11/17 Creatinine 0.73 mg/dL (0.55-1.02) 01/11/17 10:35 01/11/17 Glucose 83 mg/dL (70-110) 01/11/17 10:35 01/11/17 TSH 1.50 uIU/mL (0.358-3.74) 02/16/22 09:03 COAG Pre-Assessment Diagnosis/Proposed Procedure Planned Operative Procedure(s): Laprascopic Appendectomy Anesthesia History Anesthesia History - research and development engineer: Anesthesia History - research and development engineer Hx Hospitalization No 06/16/24 08:12 Any Problems With Anesthesia No 06/16/24 08:12 Cholinesterase deficiency No 06/16/24 08:12 You/Your Family Experience No 06/16/24 08:12 fever (hyperthermia) with Relationship Recent Exposure to Contagious No 06/16/24 08:12 Disease Does patient have nerve No 06/16/24 08:12 stimulator Patient instructed to have device shut off --Does patient have Pacemaker No 06/16/24 07:49 or ICD? When Was Last Pacemaker Check QUESTION #4 FULL TEXT: You/Your Family Experience fever (hyperthermia) with Anesthesia Last Oral Intake Last Oral intake: Last Oral Intake NPO since 05:00 06/16/24 07:49 Meds taken in AM with sips of water? Meds patient instructed to take am of surgery PONV PONV - research and development engineer: PONV - research and development engineer Female Yes 06/11/24 13:51 HX of Motion Sickness No 06/11/24 13:51 HX of N/V After Surgery No 06/11/24 13:51 Non-Smoker Yes 06/11/24 13:51 Duration of Surgery greater No 06/11/24 13:51 than 60 minutes Number of Risk Factors 2 06/11/24 13:51 PONV Score Moderate Risk 06/11/24 13:51 Height & Weight Height & Weight: Anesthesia: Height & Weight Height 5 ft 4 in 06/16/24 07:49 Weight: 77 kg 06/16/24 07:49 Body Mass Index (BMI) 29.1 06/16/24 07:49 Respiratory Assessment Respiratory Assessment - research and development engineer: Respiratory Tract Infection Hx - research and development engineer Hx Respiratory Tract Infection Yes: stomach flu 06/07/24 06/16/24 08:12 STOP Sleep Apnea STOP Sleep Apnea - research and development engineer: STOP Sleep Apnea - research and development engineer Hx Hypertension No 06/16/24 08:12 Hx Sleep Apnea No 06/16/24 10:12 CPAP No 06/16/24 08:12 BIPAP No 06/16/24 08:12 Do you snore loudly (louder No 06/16/24 08:12 than talking or can be heard Do you often feel tired/ No 06/16/24 08:12 fatigued/ sleepy during daytime? Has anyone observed you stop No 06/16/24 08:12 breathing during sleep? STOP Results Negative 06/16/24 08:28 QUESTION #5 FULL TEXT : Do you snore loudly (louder than talking or can be heard through closed doors)? Tobacco Use History Tobacco Use History - research and development engineer: Tobacco Use History - research and development engineer Tobacco Use Smoking Status Former smoker 06/16/24 08:12 Hx Tobacco Use No 06/11/24 13:51 Years Smoking Packs Smoked per Day Smoking Cessation Date was No - quit smoking greater 06/11/24 13:51 within the last 15 years than 15 years ago Hx Smoking Cessation Date 03/12/94 06/11/24 13:51 Hx Smoking Cessation Counseling Hematologic Medial History Hematologic Hx - research and development engineer: Hematologic Medical Hx - child care associate Hx of Blood Transfusion No 06/11/24 13:51 Hx of Transfusion in last 3 No 06/11/24 13:51 Months Date of Last Transfusion (if within last 3 months) Ever experience any problems No 06/11/24 13:51 with transfusion(s)? Specify any problems Hx of Preganancy in last 3 N/A 06/11/24 13:51 Months Nurse Filling Out Transfusion NBUCHER 06/11/24 13:51 & Questions: Date: 06/11/24 06/11/24 13:51 Time: 13:52 06/11/24 13:51 Patient unable to answer at this time (ie. confused, unrespo /Reproduction History /Reproductive History - research and development engineer: /Reproductive Hx- research and development engineer Hx Now No 06/16/24 08:12 Gestational Age (in weeks): EDC: Hx Hx Para Hx Section SAB No 06/11/24 13:51 Active Medications Active Medications: Current Medications Generic Name Dose Route Start Last Admin Trade Name Freq PRN Reason Stop Dose Admin Piperacillin Sod/Tazobactam 50 mls @ 12.5 mls/hr 06/16/24 14:00 06/16/24 14:07 Sod 3.375 gm/ Sodium Chloride IV 12.5 mls/hr Q8 OSMAN Administration Sodium Chloride 1,000 mls @ 15 mls/hr 06/16/24 14:00 06/16/24 14:07 IV 15 mls/hr .Q48H OSMAN Administration PFSH Medical History Wears glasses Wears contact lenses Former smoker Home Medications ?Medication ?Instructions ?Recorded ?Last Taken ?Type estradiol 0.01% (0.1 mg/gram) See Rx Instructions vagi nal 04/21/24 Unknown Rx vaginal cream (Estrace) .COMPLEX #42.5 grams diphenhydramine HCl 25 mg capsule 25 mg PO QHS PRN sle ep 04/23/24 06/15/24 History (Sleep Aid (diphenhydramine)) Allergy/AdvReac Type Severity Reaction Status Date / Time No Known Allergies Allergy Verified 06/16/24 07:49 Family History Father Cancer lung-smoking Mother Diabetes Grandmother Breast cancer Aunt Breast cancer Surgical History Hx of colonoscopy varicose vein surgery H/O breast biopsy Social History household members: spouse current occupational status: employed Smoking Status: Former smoker alcohol intake: current details: social substance use type: does not use caffeine: Yes frequency: 1-2 times per week seatbelt use: always do you feel safe at home: Yes additional social history: HelderSal Varela Patient works at [employer] Review of Systems (Anesthesia) ROS Narrative System reviewed and no additional complaints, except as documented.
[2024-06-16 14:22] LABS: ALB/GLOB Ratio 1.3 RATIO (0.9-2.4); AST(SGOT) 21 U/L (<=31); Alanine Aminotransfer ALT/SGPT 23 U/L (<=34); Albumin, Serum 4.2 g/dL (3.4-4.8); Alkaline Phosphatase 137 U/L (35-104); Anion Gap 14 (5-15); BUN 13 mg/dL (4-19); BUN/Creat Ratio 15.6 RATIO (10-20); Calcium,Total 9.5 mg/dL (7.6-11.0); Carbon Dioxide 20.7 mmol/L (21.0-32.0); Chloride 101 mmol/L (98-108); Creatinine, Serum 0.86 mg/dL (0.70-1.20); EST Glomerular Filtration Rate 76 (>60); Estimated Creatinine Clearance 67.25 ml/min (50-250); Globulin 3.2 g/dL (2.2-4.2); Glucose 130 mg/dL (70-99); Potassium 4.4 mmol/L (3.3-5.1); Protein, Total 7.4 g/dL (5.9-8.4); Sodium Level 136 mmol/L (133-145); Total Bilirubin 0.34 mg/dL (0.00-1.30)
--- NOTE | 2024-06-16 17:11 | PCM.OPRPT ---
Operative Report (Standard) Operative Information Date of Procedure: 06/16/24 Pre-Operative Diagnosis: Perforated appendicitis with abscess Post-Operative Diagnosis: Same Surgery/Procedure Performed: Laparoscopic converted to open ileocecectomy, STELLA drain placement hospital internship: Yes Speech Language Pathology Assistant: Tiffany Bush Tasks completed by hotel administrative assistant: Opening & closing Additional administrative assistant data entry?: Yes Additional Unit Supervisor #2: Karin Adrian Tasks completed by administrative assistant data entry #2: Opening & closing Additional administrative assistant data entry?: Yes Additional Unit Supervisor #3: Jose Mott Tasks completed by administrative assistant data entry #3: Other Type of Anesthesia: General/Supplemental RN Documented Start/Stop Times: Operation Date: 06/16/24 14:30 Case Time Anesthesia Start 06/16/24 14:45 Into Room 06/16/24 14:45 Procedure Start 06/16/24 15:02 Procedure End 06/16/24 17:23 Anesthesia End 06/16/24 17:29 Out of Room 06/16/24 17:29 Into Recovery 06/16/24 17:33 Out of Recovery 06/16/24 18:19 Procedure Start Time: 15:02 Procedure Stop Time: 17:23 Select all DRAINS/GRAFTS/IMPLANTS that apply: Drains Drain details: 15 [place] Special Medications: Zosyn 3.375 g IV x 1 Estimated Blood Loss: 30 cc Specimen collected: Yes Description of specimen(s) removed: Ileocecectomy Description of surgery: Indications: 63-year-old female presented to endoscopy for screening colonoscopy and found to have a white discharge from her appendiceal orifice. Patient underwent CT abdomen pelvis showed perforated appendicitis patient has previously had what she thought was the flu for about 5 days prior to her colonoscopy. Currently denies any abdominal pain. She had a leukocytosis of 12.6. Patient was started on antibiotics in AC for acute appendicitis-Zosyn 3.375 g IV x 1 Description of the procedure: The patient was placed on operating table in supine position. General anesthesia was induced. A timeout was completed verifying correct patient, procedure, position and special equipment prior to beginning procedure. Abdomen was prepped and draped in usual sterile fashion. Incision was made in the natural skin line above the umbilicus with a 15 blade scalpel. The fascia was elevated and incised. Entry into the peritoneum was confirmed visually and no bowel was noted in the vicinity of the incision. The Shoemaker trocar was placed under direct vision. Abdomen insufflated with a pressure of 12-15 mmHg. Patient tolerated insertion well. The scope was inserted and the abdomen inspected. No injuries from initial trocar placement were noted. An direct visualization 3 -5 mm trocars were placed one above the symphysis pubis and below the hairline and one in the left and right lower quadrant lateral to the rectus muscle. Care is taken to avoid injury to the bladder and inferior epigastric vessels. The table was placed in Trendelenburg position with the right side elevated. Noted to be densely adhered at the distal cecum. Tried to follow the tinea and found ratty appearing tissue with copious purulent drainage which was sent for culture. Two appendicoliths from also found and removed with the laparoscopic spoon grasper. Due to the dense adhesions converted to open with a lower midline incision wound protector was placed. Trocars were removed under direct visualization. The terminal ileum as well as ascending colon were identified and divided with a TIM 75 stapler. Enseal was used to divide the mesentery. The antimesenteric border and the tinea of the ascending colon were brought together with the TIM 75 stapler and enterotomy was closed with a TL 60. Crotch stitch of 3-0 silk suture was placed. There is noted to be some oozing at the raw tissue where the abscess was located. One area was controlled with 3-0 silk suture another with cautery and also used hemoblast at this area. Hemostasis was achieved. Abdomen was copiously irrigated with saline and suctioned. STELLA drain was placed exiting the right lower quadrant in the area of the abscess. Secured with 3-0 nylon suture. Local anesthesia of 30 mL of 0.25% Marcaine was used at the incision sites. Midline incision closed with 1 PDS. The skin was loosely closed using interrupted sutures of 4-0 Monocryl and Betadine soaked Telfa rigo were placed between. The patient was extubated. The patient tolerated the procedure well and was taken to the postanesthesia care unit in satisfactory condition. Surgical Findings: Perforated appendicitis with abscess Complications Complications: No
[2024-06-16] MEDS: Bupiv/Epi 0.25% 30 ML Vial (17:18)
--- NOTE | 2024-06-16 17:35 | PCM.POST.ANE ---
Anesthesia: Postop Eval I Current Vital Signs Temperature: 99 F Pulse Rate: 96 Blood Pressure: 114/49 Respiratory Rate: 16 Pulse Ox: 97 Oxygen Delivery Method: Room Air Assessment Airway patent: Yes Spontaneous unlabored respirations: Yes Mental status: Awake and Calm nausea: No Vomiting: No Anesthesia Complication: No Fluid Hydration Crystalloid volume administer (ml): 1,000 Total IV fluid infused: 1,000 Progress Note Anesthesia document: Postop Eval 1 completed: Yes
--- NOTE | 2024-06-16 17:36 | PCM.POSTANE2 ---
Anesthesia Postop Eval I Sum Postop Eval Completion status Anesthesia document: Postop Eval 1 completed: Yes Anesthesia Postop Eval I Summary Anesthesia Postop Eval I Summary: Anesthesia Postop Eval I: Assessment Summary Airway patent Yes 06/16/24 17:36 Spontaneous unlabored Yes 06/16/24 17:36 respirations Mental status Awake,Calm 06/16/24 17:36 nausea No 06/16/24 17:36 Vomiting No 06/16/24 17:36 Anesthesia Postop Eval I: Fluid Summary Crystalloid volume administer 1,000 06/16/24 17:36 (ml) Colloids volume administered ( ml) Blood Product volume administered (ml) Total IV fluid infused 1,000 06/16/24 17:36 Anesthesia Postop Eval I: Summary Notes Anesthesia Complication No 06/16/24 17:36 Anesthesia Complication Comment: Post-operative progress note Anesthesia: Postop Eval II Evaluation Mental status: Awake Pain Level: 3 nausea: No Vomiting: No
[2024-06-16] MEDS: Ketorolac 15 MG/ML Vial IV (17:48)
[2024-06-16] MEDS: Morphine 2 MG/ML Syringe IV (19:50)
[2024-06-16] MEDS: 0.9% Normal Saline (1000mL) 1,000 ML 120 ML IV (19:50)
[2024-06-16] MEDS: oxyCODONE 5 MG Tablet PO (22:11)
[2024-06-16] MEDS: 0.9% Normal Saline (100mL Bag) 100 ML 15 ML IV (22:41)
[2024-06-16] MEDS: Ondansetron 4 MG/2 ML Vial IV (22:58)
[2024-06-16] MEDS: Morphine 4 MG/ML Syringe IV (23:14)
[2024-06-17] VITALS (7 sets, daily range): BP systolic 95–108; BP diastolic 48–69; PULSE 68–96; RESP 14–18; TEMP 36.5–36.9; O2SAT 94–100
[2024-06-17] MEDS: Morphine 4 MG/ML Syringe IV (02:46)
[2024-06-17 04:34] LABS: Absolute Lymphocyte Count 0.99 X10^3/uL (0.83-4.51); Absolute Neutrophil Count 19.2 X10^3/uL (2.0-7.7); Basophil# 0.03 X10^3/uL; Basophil% 0.1 % (0-1); Hematocrit 36.7 % (37-47); Hemoglobin 11.8 g/dL (12.0-15.0); Lymphocyte # 0.99 X10^3/ul (0.83-4.51); Lymphocyte % 4.6 % (19-41); Mean Corp Hgb Conc 32.2 g/dL (32-36); Mean Corpuscular Hgb 31.7 pg (27.0-32.0); Mean Corpuscular Volume 98.7 fL (81-99); Mean Platelet Vol. 9.1 fl (6.2-12.0); Monocyte# 1.15 X10^3/uL; Monocyte% 5.4 % (0-10); NRBC Flagged by Analyzer 0 % (0-5); Neutrophil # 19.18 X10^3/uL (2.7-7.7); Neutrophil % 89.3 % (47-70); Platelet Count 626 K/mm3 (150-450); RBC Distribution Width CV 12.3 % (11.6-14.6); RBC Distribution Width SD 45.1 fl (35.1-43.9); Red Blood Count 3.72 M/mm3 (4.2-5.4); White Blood Count 21.5 K/mm3 (4.4-11.0)
[2024-06-17 05:06] LABS: Anion Gap 10 (5-15); BUN 15 mg/dL (4-19); BUN/Creat Ratio 16.7 RATIO (10-20); Calcium,Total 8.2 mg/dL (7.6-11.0); Carbon Dioxide 21.5 mmol/L (21.0-32.0); Chloride 107 mmol/L (98-108); EST Glomerular Filtration Rate 72 (>60); Estimated Creatinine Clearance 64.26 ml/min (50-250); Glucose 157 mg/dL (70-99); Potassium 4.5 mmol/L (3.3-5.1); Sodium Level 139 mmol/L (133-145)
[2024-06-17] MEDS: Piperacil/Tazobactam 3.375 GM in 0.9% Normal Saline (50mL MB+) 50 ML IV ×3 (05:44→21:02)
[2024-06-17] MEDS: 0.9% Normal Saline (1000mL) 1,000 ML 120 ML IV ×2 (05:44→14:34)
--- NOTE | 2024-06-17 09:20 | PN.SURG_ITS ---
Subjective Subjective Patient evaluated resting comfortably in bed. She notes feeling distended and painful. She denies any fever, nausea, vomiting. She denies any flatus or BM. Objective Data Objective Data Vital Signs: Vital Signs Temp Pulse Resp BP Pulse Ox O2 Del Method O2 Flow Rate 98.4 F 70 14 95/53 L 96 Room Air 2 06/17/24 08:05 06/17/24 08:05 06/17/24 08:05 06/17/24 08:05 06/17/24 08:05 06/17/24 08:58 06/17/24 02:25 Oxygen Flow Rate (L/min) 2 Oxygen Delivery Method Room Air Weight: 169 lb 12.095 oz Body Mass Index (BMI) 29.1 Intake & Output: Intake and Output for Last 24 Hours 06/15/24 06/16/24 06/17/24 23:59 23:59 23:59 Intake Total 1122.75 / 1122.75 1050 / 1050 Output Total 535 / 585 310 / 310 Balance 587.75 / 537.75 740 / 740 Lab / Micro Data 06/17/24 04:10 06/17/24 04:10 Labs: Laboratory Results - last 24 hr 06/16/24 13:20: WBC 12.6 H, RBC 4.47, Hgb 14.1, Hct 42.7, MCV 95.5, MCH 31.5, MCHC 33.0, RDW Std Deviation 42.6, RDW Coeff of Willa 12.1, Plt Count 740 H, MPV 8.9, Immature Gran % (Auto) 0.400, Neut % (Auto) 89.6 H, Lymph % (Auto) 8.6 L, Campbell % (Auto) 1.0, Eos % (Auto) 0.2, Baso % (Auto) 0.2, Absolute Neuts (auto) 11.3 H, Absolute Lymphs (auto) 1.08, Nucleated RBC % 0, Sodium 136, Potassium 4.4, Chloride 101, Carbon Dioxide 20.7 L, Anion Gap 14, BUN 13, Creatinine 0.86, Estim Creat Clear Calc 67.25, Est GFR (MDRD) Non-Af 76, BUN/Creatinine Ratio 15.6, Glucose 130 H, Calcium 9.5, Total Bilirubin 0.34, AST 21, ALT 23, Alkaline Phosphatase 137 H, Total Protein 7.4, Albumin 4.2, Globulin 3.2, Albumin/Globulin Ratio 1.3 06/17/24 04:10: WBC 21.5 H, RBC 3.72 L, Hgb 11.8 L, Hct 36.7 L, MCV 98.7, MCH 31.7, MCHC 32.2, RDW Std Deviation 45.1 H, RDW Coeff of Willa 12.3, Plt Count 626 H, MPV 9.1, Immature Gran % (Auto) 0.600, Neut % (Auto) 89.3 H, Lymph % (Auto) 4.6 L, Campbell % (Auto) 5.4, Eos % (Auto) 0.0, Baso % (Auto) 0.1, Absolute Neuts (auto) 19.2 H, Absolute Lymphs (auto) 0.99, Nucleated RBC % 0, Sodium 139, Potassium 4.5, Chloride 107, Carbon Dioxide 21.5, Anion Gap 10, BUN 15, Creatinine 0.90, Estim Creat Clear Calc 64.26, Est GFR (MDRD) Non-Af 72, BUN/Creatinine Ratio 16.7, Glucose 157 H, Calcium 8.2 Radiography Diagnostic Testing: Radiology Impression Abdomen/Pelvis CT 06/16/24 12:35 IMPRESSION: 1. Mucosal thickening in the appendix with surrounding inflammation. Appendix measures 1.6 cm in diameter. Findings are consistent with acute appendicitis. Possible contained micro perforation. 2. Hepatomegaly with fatty infiltration. 3. Umbilical hernia containing fat. Red Alert: Acute appendicitis with possible contained micro perforation. The critical information above was relayed directly by me by telephone to Parisa Banda on 06/16/2024 at 1:36 pm with readback verification. Reading Location: [facility] Physical Exam GI GI Narrative: Abdomen- soft, distended. Incisions clean, no signs of infection. Midline incision with multiple telfa rigo in place. Drainage on the ABD pad was serosangeious fluid. STELLA drain intact and was stripped. SA fluid noted within the drain. generalized tenderness. Assessment & Plan Assessment/Plan (1) Mucocele, appendix: PLAN: I am following this patient in conjunction with Dr. Banda. She has independently evaluated this patient. Labs reviewed. WBC increased Continue IV antibiotics Encourage ambulation and I.S May chew gum or hard candy Leave rigo in place today Continue STELLA drain Change ABD pad twice daily We will continue to monitor this patient Charges/Coding Visit Charges Inpatient E&M: 44261 Subs Hosp L1 (post-op; no charge)
[2024-06-17] MEDS: Ketorolac 15 MG/ML Vial IV (09:25)
[2024-06-17] MEDS: 0.9% Saline Lock 10 ML Syringe IV (09:31)
[2024-06-17 10:45] LABS: Cytology, Body Fluid / CSF SEE PATHOLOGY REPORT
[2024-06-17] MEDS: oxyCODONE 5 MG Tablet PO ×2 (12:36→18:26)
[2024-06-17] MEDS: Morphine 2 MG/ML Syringe IV (14:16)
--- NOTE | 2024-06-17 14:38 | CASEMGMT ---
NICA BOWERS Assessment: Face to Face with pt for initial transition planning/care coordination assessment. NICA BOWERS introduced self and role at [facility], pt voices understanding and consents to assessment. Pt is A&O x4 and answers all questions appropriately at this time. Pt lying in bed with at bedside. Care providers, pharmacy, and demographics verified/updated. Admitting Dx: Perforated appendicitis with abscess Strata Score: 1 PCP:Ana, provided pt with a local healthcare directory pamphlet Specialists:Denies Preferred Pharmacy:[facility] Insurance: [place] Prescription Benefit: yes LNOK: Helder Herron, Living Arrangements: Pt lives with in a 3 story home with 1 step to enter. Pt reports she is I in ADL/IADLs and denies concerns at home. Transportation: Pt drives self and denies concerns with transportation. DME:Denies HHC/SNF: Denies hx of Pt states no concerns with going home at time of dc. Pt states no further concerns/needs. Pt currently has STELLA drain and wicking to abd incision. CM to follow. Advised pt to ask CM if any further questions/concerns/needs arise, voices understanding. Pt Goal: Home Plan: Home Tom YOUSIF CM
[2024-06-17] MEDS: Enoxaparin 40 MG/0.4 ML Syringe SC (18:26)
[2024-06-18] MEDS: 0.9% Normal Saline (1000mL) 1,000 ML 80 ML IV ×2 (01:17→14:40)
[2024-06-18 02:00] VITALS: BP 103/62; PULSE 96; RESP 16; TEMP 36.6; O2SAT 93
[2024-06-18] MEDS: oxyCODONE 5 MG Tablet PO ×3 (05:35→17:34)
[2024-06-18] MEDS: Piperacil/Tazobactam 3.375 GM in 0.9% Normal Saline (50mL MB+) 50 ML IV ×3 (05:36→21:30)
[2024-06-18 07:41] LABS: Absolute Neutrophil Count 21.3 X10^3/uL (2.0-7.7); Basophil# 0.06 X10^3/uL; Basophil% 0.3 % (0-1); Eosinophil# 0.01 X10^3/uL; Hematocrit 36.3 % (37-47); Hemoglobin 11.4 g/dL (12.0-15.0); Lymphocyte % 5.5 % (19-41); Mean Corp Hgb Conc 31.4 g/dL (32-36); Mean Corpuscular Hgb 31.5 pg (27.0-32.0); Mean Corpuscular Volume 100.3 fL (81-99); Mean Platelet Vol. 9.6 fl (6.2-12.0); Monocyte# 0.98 X10^3/uL; Monocyte% 4.1 % (0-10); NRBC Flagged by Analyzer 0 % (0-5); Neutrophil # 21.32 X10^3/uL (2.7-7.7); Neutrophil % 89.4 % (47-70); POSITIVE DIFFERENTIAL YES; Platelet Count 551 K/mm3 (150-450); RBC Distribution Width CV 12.7 % (11.6-14.6); RBC Distribution Width SD 47.5 fl (35.1-43.9); Red Blood Count 3.62 M/mm3 (4.2-5.4); White Blood Count 23.8 K/mm3 (4.4-11.0)
[2024-06-18 07:50] LABS: Differential Indicated SCAN CRITERIA MET
[2024-06-18 08:22] LABS: Anion Gap 16 (5-15); BUN 11 mg/dL (4-19); BUN/Creat Ratio 17.4 RATIO (10-20); Calcium,Total 7.2 mg/dL (7.6-11.0); Carbon Dioxide 14.7 mmol/L (21.0-32.0); Chloride 106 mmol/L (98-108); Creatinine, Serum 0.65 mg/dL (0.70-1.20); EST Glomerular Filtration Rate 99 (>60); Estimated Creatinine Clearance 88.97 ml/min (50-250); Glucose 105 mg/dL (70-99); Potassium 3.5 mmol/L (3.3-5.1); Sodium Level 136 mmol/L (133-145)
[2024-06-18 08:38] VITALS: BP 95/50; PULSE 85; RESP 16; TEMP 36.7; O2SAT 93
--- NOTE | 2024-06-18 08:50 | PN.SURG_ITS ---
Subjective Subjective Patient evaluated resting comfortably in the chair. She notes feeling tired this morning. She states she passed very little amount of flatus. She notes slight amount intermittent nausea over night. She notes some belching and indigestion. She has been chewing gum, hard candy and taking in some ice chips. She notes feeling a little less distended. Negative BM. Objective Data Objective Data Vital Signs: Vital Signs Temp Pulse Resp BP Pulse Ox O2 Del Method O2 Flow Rate 98.1 F 85 16 95/50 L 93 Room Air 2 06/18/24 08:38 06/18/24 08:38 06/18/24 08:38 06/18/24 08:38 06/18/24 08:38 06/18/24 08:38 06/17/24 02:25 Oxygen Flow Rate (L/min) 2 Oxygen Delivery Method Room Air Weight: 169 lb 12.095 oz Body Mass Index (BMI) 29.1 Intake & Output: Intake and Output for Last 24 Hours 06/16/24 06/17/24 06/18/24 23:59 23:59 23:59 Intake Total 1122.75 / 1122.75 3252 / 3252 398 / 398 Output Total 535 / 585 420 / 435 Balance 587.75 / 537.75 2832 / 2817 373 / 373 Lab / Micro Data 06/18/24 07:08 06/18/24 07:08 Labs: Laboratory Results - last 24 hr 06/18/24 07:08: WBC 23.8 H, RBC 3.62 L, Hgb 11.4 L, Hct 36.3 L, MCV 100.3 H, MCH 31.5, MCHC 31.4 L, RDW Std Deviation 47.5 H, RDW Coeff of Willa 12.7, Plt Count 551 H, MPV 9.6, Immature Gran % (Auto) 0.700, Neut % (Auto) 89.4 H, Lymph % (Auto) 5.5 L, [place] % (Auto) 4.1, Eos % (Auto) 0.0, Baso % (Auto) 0.3, Absolute Neuts (auto) 21.3 H, Absolute Lymphs (auto) 1.30, Nucleated RBC % 0, Sodium 136, Potassium 3.5, Chloride 106, Carbon Dioxide 14.7 L, Anion Gap 16 H, BUN 11, C reatinine 0.65 L, Estim Creat Clear Calc 88.97, Est GFR (MDRD) Non-Af 99, BUN/Creatinine Ratio 17.4, Glucose 105 H, Calcium 7.2 L Physical Exam GI GI Narrative: Abdomen- slightly distended. Hypoactive bowel sounds. Midline incision with removal of 3 out of the 5 telfa rigo. ABD pad replaced. Op-sites placed over top of the other laparoscopic sites. STELLA drain intact with serosanguineous fluid noted. No signs of infection or purulent material noted. Assessment & Plan Assessment/Plan (1) Mucocele, appendix: PLAN: I am following this patient in conjunction with Dr. Banda. She has independently evaluated this patient. Labs reviewed. WBC increased to 23.8 Continue IV antibiotics Encourage ambulation and I.S May chew gum or hard candy Removed 3 out of the 5 rigo this morning. May remove the remaining later today Continue STELLA drain Change ABD pad twice daily We will continue to monitor this patient Charges/Coding Visit Charges Inpatient E&M: 13227 Subs Hosp L1 (no charge; post-op)
[2024-06-18] MEDS: Pantoprazole Sodium 40 MG in 0.9% Normal Saline (100mL MB+) 100 ML 330 MG IV (09:55)
[2024-06-18] MEDS: Enoxaparin 40 MG/0.4 ML Syringe SC (09:56)
[2024-06-18 09:58] VITALS: BP 100/52; PULSE 80; TEMP 36.6; O2SAT 93
[2024-06-18 12:39] VITALS: BP 101/61; PULSE 84; RESP 16; TEMP 36.6; O2SAT 94
--- NOTE | 2024-06-18 16:04 | MDS.RN ---
All documentation by student truck driver Comfort Rodriguez reviewed by first officer and flight instructor Whit CARRINGTONN, RN.
[2024-06-18 17:17] VITALS: BP 102/48; PULSE 87; RESP 16; TEMP 36.9; O2SAT 95
[2024-06-18 19:57] VITALS: BP 94/51; PULSE 87; RESP 16; TEMP 37.2; O2SAT 93
[2024-06-18] MEDS: 0.9% Normal Saline (100mL Bag) 100 ML 15 ML IV (21:31)
[2024-06-19] MEDS: Acetaminophen 325 MG Tablet 650 MG PO (01:54)
[2024-06-19 02:00] VITALS: BP 107/65; PULSE 86; RESP 16; TEMP 37.8; O2SAT 92
[2024-06-19] MEDS: 0.9% Normal Saline (1000mL) 1,000 ML 80 ML IV (03:09)
[2024-06-19] MEDS: Piperacil/Tazobactam 3.375 GM in 0.9% Normal Saline (50mL MB+) 50 ML IV ×3 (05:57→21:03)
[2024-06-19 06:42] LABS: Absolute Lymphocyte Count 1.42 X10^3/uL (0.83-4.51); Absolute Neutrophil Count 15.7 X10^3/uL (2.0-7.7); Basophil# 0.07 X10^3/uL; Basophil% 0.4 % (0-1); Eosinophil# 0.16 X10^3/uL; Eosinophils% 0.9 % (0-5); Hematocrit 31.5 % (37-47); Hemoglobin 10.1 g/dL (12.0-15.0); Lymphocyte # 1.42 X10^3/ul (0.83-4.51); Lymphocyte % 7.7 % (19-41); Mean Corp Hgb Conc 32.1 g/dL (32-36); Mean Corpuscular Hgb 31.5 pg (27.0-32.0); Mean Corpuscular Volume 98.1 fL (81-99); Mean Platelet Vol. 9.6 fl (6.2-12.0); Monocyte# 0.89 X10^3/uL; Monocyte% 4.9 % (0-10); NRBC Flagged by Analyzer 0 % (0-5); Neutrophil # 15.66 X10^3/uL (2.7-7.7); Neutrophil % 85.3 % (47-70); Platelet Count 486 K/mm3 (150-450); RBC Distribution Width CV 12.4 % (11.6-14.6); RBC Distribution Width SD 44.8 fl (35.1-43.9); Red Blood Count 3.21 M/mm3 (4.2-5.4); White Blood Count 18.3 K/mm3 (4.4-11.0)
[2024-06-19 07:02] LABS: Anion Gap 10 (5-15); BUN 11 mg/dL (4-19); BUN/Creat Ratio 18.6 RATIO (10-20); Calcium,Total 7.6 mg/dL (7.6-11.0); Carbon Dioxide 19.3 mmol/L (21.0-32.0); Chloride 108 mmol/L (98-108); Creatinine, Serum 0.58 mg/dL (0.70-1.20); EST Glomerular Filtration Rate 102 (>60); Estimated Creatinine Clearance 99.71 ml/min (50-250); Glucose 102 mg/dL (70-99); Potassium 3.3 mmol/L (3.3-5.1); Sodium Level 138 mmol/L (133-145)
[2024-06-19 07:25] VITALS: BP 109/60; PULSE 81; RESP 18; TEMP 36.6; O2SAT 93
[2024-06-19 07:40] VITALS: PULSE 70
--- NOTE | 2024-06-19 08:05 | PN.SURG_ITS ---
Subjective Subjective Patient evaluated resting comfortably in bed. She notes feeling slightly improved. She denies any nausea, vomiting. She notes belching and indigestion is improved. She notes generalized discomfort. She notes positive flatus. Negative BM. Tolerating ice chips. Objective Data Objective Data Vital Signs: Vital Signs Temp Pulse Resp BP Pulse Ox O2 Del Method O2 Flow Rate 100.1 F H 70 16 107/65 92 Room Air 2 06/19/24 02:00 06/19/24 07:40 06/19/24 02:00 06/19/24 02:00 06/19/24 02:00 06/19/24 02:00 06/17/24 02:25 Oxygen Flow Rate (L/min) 2 Oxygen Delivery Method Room Air Weight: 169 lb 12.095 oz Body Mass Index (BMI) 29.1 Intake & Output: Intake and Output for Last 24 Hours 06/17/24 06/18/24 06/19/24 23:59 23:59 23:59 Intake Total 3252 / 3252 2483 / 2483 1048.67 / 1048.67 Output Total 420 / 435 220 / 220 Balance 2832 / 2817 2263 / 2263 1037.67 / 1037.67 Lab / Micro Data 06/19/24 05:57 06/19/24 05:57 Labs: Laboratory Results - last 24 hr 06/18/24 07:08: Sodium 136, Potassium 3.5, Chloride 106, Carbon Dioxide 14.7 L, Anion Gap 16 H, BUN 11, Creatinine 0.65 L, Estim Creat Clear Calc 88.97, Est GFR (MDRD) Non-Af 99, BUN/Creatinine Ratio 17.4, Glucose 105 H, Calcium 7.2 L 06/19/24 05:57: WBC 18.3 H, RBC 3.21 L, Hgb 10.1 L, Hct 31.5 L, MCV 98.1, MCH 31.5, MCHC 32.1, RDW Std Deviation 44.8 H, RDW Coeff of Willa 12.4, Plt Count 486 H, MPV 9.6, Immature Gran % (Auto) 0.800, Neut % (Auto) 85.3 H, Lymph % (Auto) 7.7 L, [place] % (Auto) 4.9, Eos % (Auto) 0.9, Baso % (Auto) 0.4, Absolute Neuts (auto) 15.7 H, Absolute Lymphs (auto) 1.42, Nucleated RBC % 0, Sodium 138, Potassium 3.3, Chloride 108, Carbon Dioxide 19.3 L, Anion Gap 10, BUN 11, C reatinine 0.58 L, Estim Creat Clear Calc 99.71, Est GFR (MDRD) Non-Af 102, BUN/Creatinine Ratio 18.6, Glucose 102 H, Calcium 7.6 Physical Exam GI GI Narrative: Abdomen- soft, generalized tenderness. Hypoactive bowel sounds. Incision intact. Slight drainage, improved from yesterday. Dry gauze applied to umbilical area, so drainage is not pooling. STELLA drain intact and was stripped. Assessment & Plan Assessment/Plan (1) Mucocele, appendix: PLAN: I am following this patient in conjunction with Dr. Banda. She will independently evaluate this patient. Labs reviewed. WBC slowly decreasing. Continue IV antibiotics Increase diet to clear liquids Decrease IV fluids Continue with STELLA drain in place Encourage ambulation and I.S. use We will continue to monitor this patient Discharge pending Charges/Coding Visit Charges Inpatient E&M: 83732 Subs Hosp L1 (post-op; no charge)
[2024-06-19] MEDS: Pantoprazole Sodium 40 MG in 0.9% Normal Saline (100mL MB+) 100 ML 330 MG IV (10:12)
[2024-06-19] MEDS: Enoxaparin 40 MG/0.4 ML Syringe SC (10:13)
[2024-06-19 13:58] VITALS: BP 106/61; PULSE 84; RESP 18; TEMP 37.1; O2SAT 97
[2024-06-19 14:15] VITALS: PULSE 80
[2024-06-19] MEDS: Ketorolac 15 MG/ML Vial IV ×2 (14:24→20:30)
[2024-06-19] MEDS: 0.9% Saline Lock 10 ML Syringe IV (14:24)
--- NOTE | 2024-06-19 17:20 | CASEMGMT ---
RN CM NOTE: Noted pt has been using FWW in room since surgery, 6 clicks 19. RN CM to room. Pt resting in bed, @ bedside. Introduced self and role. Pt states she was just talking w/ about wanting to get a walker for home. Made aware a script can be obtained from physician and can get a walker from [employer] company prior to discharge. They would like to do this and chose [facility] as DME co. of choice. Pt declines wanting any HHC or OP therapy. Pt and deny having other discharge needs or concerns. Made aware to ask for CM if any further needs or questions arise. Shira CARRINGTONN RN CM
[2024-06-19 20:20] VITALS: BP 131/74; PULSE 70; RESP 16; TEMP 36.8; O2SAT 95
[2024-06-19] MEDS: 0.9% Normal Saline (100mL Bag) 100 ML 15 ML IV (21:04)
[2024-06-20] MEDS: oxyCODONE 5 MG Tablet PO (00:51)
[2024-06-20 02:00] VITALS: BP 121/69; PULSE 74; RESP 16; TEMP 36.6; O2SAT 97
[2024-06-20 05:21] LABS: Absolute Lymphocyte Count 1.49 X10^3/uL (0.83-4.51); Absolute Neutrophil Count 9.9 X10^3/uL (2.0-7.7); Basophil# 0.05 X10^3/uL; Basophil% 0.4 % (0-1); Eosinophil# 0.58 X10^3/uL; Eosinophils% 4.5 % (0-5); Hematocrit 27.8 % (37-47); Hemoglobin 9.2 g/dL (12.0-15.0); Lymphocyte # 1.49 X10^3/ul (0.83-4.51); Lymphocyte % 11.5 % (19-41); Mean Corp Hgb Conc 33.1 g/dL (32-36); Mean Corpuscular Hgb 31.8 pg (27.0-32.0); Mean Corpuscular Volume 96.2 fL (81-99); Mean Platelet Vol. 9.4 fl (6.2-12.0); Monocyte# 0.82 X10^3/uL; Monocyte% 6.3 % (0-10); NRBC Flagged by Analyzer 0 % (0-5); Neutrophil # 9.94 X10^3/uL (2.7-7.7); Neutrophil % 76.5 % (47-70); Platelet Count 458 K/mm3 (150-450); RBC Distribution Width CV 12.3 % (11.6-14.6); RBC Distribution Width SD 43.6 fl (35.1-43.9); Red Blood Count 2.89 M/mm3 (4.2-5.4)
[2024-06-20 05:51] LABS: Anion Gap 9 (5-15); BUN 14 mg/dL (4-19); BUN/Creat Ratio 23.7 RATIO (10-20); Calcium,Total 7.5 mg/dL (7.6-11.0); Carbon Dioxide 22.3 mmol/L (21.0-32.0); Chloride 107 mmol/L (98-108); Creatinine, Serum 0.58 mg/dL (0.70-1.20); EST Glomerular Filtration Rate 101 (>60); Estimated Creatinine Clearance 99.71 ml/min (50-250); Glucose 106 mg/dL (70-99); Potassium 3.3 mmol/L (3.3-5.1); Sodium Level 139 mmol/L (133-145)
[2024-06-20] MEDS: Piperacil/Tazobactam 3.375 GM in 0.9% Normal Saline (50mL MB+) 50 ML IV (05:58)
--- NOTE | 2024-06-20 07:44 | DCINST_ITS ---
Discharge Instructions Diet Discharge Diet: Light diet - advance as tolerated Activity Discharge Activity: May Not Drive (while taking narcotic pain medications.) May shower in (days): 1 Lifting Restrictions: no lifting >20 lbs x 2 wks, no strenuous exercise for 4 wks Dressing / Incision Call your doctor if your incision/area has: Continuous Slow Oozing, Sudden Increased Bleeding, Increased Pain/ Swelling, Increased Redness, Foul Smelling Discharge and Swelling at the incision site Call your doctor if you observe: Fever of 101 or Higher Change Dressing in: 1 day (and PRN) Cleanse incision/area with: Soap & Water Follow Up Care Please Follow Up With: Parisa Banda MD When: Call the office for a follow-up appointment 1-2 weeks; after 5 PM and on the weekends call [phone] with any concerns. Test Results: Test results from this visit will be discussed in further detail at your follow- up appointment, if applicable. Discharge Plan Admission Admit Date/Time: 06/16/24 17:20 Attending Provider: Parisa Banda Primary Care Provider: Care PhysicianJenni Primary Discharge Orders/Prescriptions Prescriptions: New oxycodone 5 mg capsule 5 mg PO Q6H PRN (Reason: pain) 3 Days Qty: 10 0RF amoxicillin-pot clavulanate 875-125 mg tablet 1 tab PO Q12H Qty: 10 0RF No Action estradiol [Estrace] 0.01 % (0.1 mg/gram) cream See Rx Instructions vaginal .COMPLEX Qty: 42.5 3RF Rx Instructions: use fingertip amount or 1-2g every night vaginally x 2 weeks, then 1-3x weekly for maintenance diphenhydramine HCl [Sleep Aid (diphenhydramine)] 25 mg capsule 25 mg PO QHS PRN (Reason: sleep) Referrals / Follow Up: Care PhysicianJenni Primary [Primary Care Provider] - Disposition Disposition (needs filled in before D/C Order can be placed): Home, Self Care
--- NOTE | 2024-06-20 07:56 | DS.PCM_ITS ---
Providers Date of Admission: 06/16/24 Date of Discharge: 06/20/24 Primary Care Physician: No Primary Care Phys Diagnosis Discharge Diagnosis (1) Status post exploratory laparotomy: Status: Acute Code(s): Z98.890 - Other specified postprocedural states (2) Acute appendicitis with perforation and localized peritonitis, without abscess: Status: Acute Code(s): K35.32 - Acute appendicitis with perforation, localized peritonitis, and gangrene, without abscess (3) Encounter for screening for malignant neoplasm of colon: Status: Acute Code(s): Z12.11 - Encounter for screening for malignant neoplasm of colon Medications at Discharge Home Medications estradiol 0.01% (0.1 mg/gram) vaginal cream (Estrace) See Rx Instructions vaginal .COMPLEX #42.5 grams 04/21/24 diphenhydramine HCl 25 mg capsule (Sleep Aid (diphenhydramine)) 25 mg PO QHS PRN sleep 04/23/24 amoxicillin 875 mg-potassium clavulanate 125 mg tablet 1 tab PO Q12H #10 tabs 06/20/24 oxycodone 5 mg capsule 5 mg PO Q6H PRN pain 3 days #10 caps 06/20/24 Hospital Course Operations - (ileocecectomy 06/16/24 due to perf appendicitis w abscess) Procedures Colonoscopy (pt came in for screening colonoscopy and was found to have white discharge from appendiceal orifice- CT a/p ordered and showed perf appendicitis with abscess) Summary of Care Provided Minutes Spent on Discharge: 15 Hospital Course: 63 y/o female came in for screening colonoscopy and was found to have white discharge from appendiceal orifice- CT a/p ordered and showed perf appendicitis with abscess. Pt had flu previously for 5 days recently before colonoscopy. Pt underwent lap appy converted to ex lap with ileocecectomy and STELLA placement. Post op pt was on IV [id number]-zosyn, NPO until bowel function return, pt was able to ben PO and be D/C home with PO Augmentin. Weight / BMI Weight Weight: 169 lb 12.095 oz Body Mass Index (BMI) 29.1 ABG / Lab / Microbiology Data 06/20/24 05:04 06/20/24 05:04 Laboratory: Laboratory Results - last 24 hr 06/20/24 05:04: WBC 13.0 H, RBC 2.89 L, Hgb 9.2 L, Hct 27.8 L, MCV 96.2, MCH 31.8, MCHC 33.1, RDW Std Deviation 43.6, RDW Coeff of Willa 12.3, Plt Count 458 H, MPV 9.4, Immature Gran % (Auto) 0.800, Neut % (Auto) 76.5 H, Lymph % (Auto) 11.5 L, [place] % (Auto) 6.3, Eos % (Auto) 4.5, Baso % (Auto) 0.4, Absolute Neuts (auto) 9.9 H, Absolute Lymphs (auto) 1.49, Nucleated RBC % 0, Sodium 139, Potassium 3.3, Chloride 107, Carbon Dioxide 22.3, Anion Gap 9, BUN 14, Creatinine 0.58 L, Estim Creat Clear Calc 99.71, Est GFR (MDRD) Non-Af 101, BUN/Creatinine Ratio 23.7 H, Glucose 106 H, Calcium 7.5 L Microbiology: Microbiology 06/18/24 10:52 Aspirate - Abdominal Gram Stain - Final 06/18/24 10:52 Aspirate - Abdominal Wound Culture - Preliminary Escherichia coli Alpha hemolytic organism 06/18/24 10:52 Aspirate - Abdominal Anaerobic Culture - Preliminary Checking for anaerobes, further studies to follow. D/C Instructions Discharge Diet: - (transitional - low fiber) Discharge Activity: May Shower May shower in (days): 0 Lifting Restrictions: no lifting > 20lb for 2 weeks, no strenuous exercise for 4 weeks Call your doctor if your incision/area has: Continuous Slow Oozing, Sudden Increased Bleeding, Increased Pain/ Swelling, Increased Redness, Foul Smelling Discharge and Swelling at the incision site Call your doctor if you observe: Fever of 101 or Higher Change Dressing in: 1 day (daily and PRN) Cleanse incision/area with: Soap & Water DC O2, CPAP, BIPAP Needs Home O2 Discharge instructions: No Please Follow Up With: Parisa Banda MD When: Call the office for a follow-up appointment 1-2 weeks; after 5 PM and on the weekends call [phone] with any concerns. Meaningful Use Info Meaningful Use Meaningful Use Diagnoses (Choose all that apply): None applicable Ischemic Stroke Statin Dosing Therapy Reference: STATIN DOSE THERAPY REFERENCE: * Patients > 75 years receive moderate or high dose statin therapy. * Patients 75 years or YOUNGER should receive HIGH intensity statin dose unless contraindicated. You will be required to document reason for non-treatment if statin daily dose does not meet guidelines. HIGH DOSE STATIN THERAPY DAILY Atorvastatin > than or = to 40 mg Rosuvastatin > than or = to 20 mg Amlodipine + Atorvastatin > than or = to 2.5/40 mg Ezetimibe + Simvastatin 10/80 mg Simvastatin 80mg Discharge Plan Admission Admit Date/Time: 06/16/24 17:20 Primary Reason for Your Visit: Perforated appendicitis Attending Provider: Parisa Banda Primary Care Provider: Care PhysicianJenni Primary Instructions Forms: Work / School Excuse Discharge Orders/Prescriptions Prescriptions: New oxycodone 5 mg capsule 5 mg PO Q6H PRN (Reason: pain) 3 Days Qty: 10 0RF amoxicillin-pot clavulanate 875-125 mg tablet 1 tab PO Q12H Qty: 10 0RF No Action estradiol [Estrace] 0.01 % (0.1 mg/gram) cream See Rx Instructions vaginal .COMPLEX Qty: 42.5 3RF Rx Instructions: use fingertip amount or 1-2g every night vaginally x 2 weeks, then 1-3x weekly for maintenance diphenhydramine HCl [Sleep Aid (diphenhydramine)] 25 mg capsule 25 mg PO QHS PRN (Reason: sleep) Referrals / Follow Up: Care PhysicianJenni Primary [Primary Care Provider] - Disposition Disposition (needs filled in before D/C Order can be placed): Home, Self Care
[2024-06-20 08:00] VITALS: BP 145/77; PULSE 73; RESP 18; TEMP 36.8; O2SAT 97
[2024-06-20] MEDS: Potassium Chloride Oral Tablet 20 MEQ 40 MEQ PO (08:02)
--- NOTE | 2024-06-20 09:28 | CASEMGMT ---
NICA CM NOTE: Script for FWW obtained from Dr Saba [place] [facility] Shira VENCES RN CM
[2024-06-20] MEDS: Pantoprazole Sodium 40 MG in 0.9% Normal Saline (100mL MB+) 100 ML 330 MG IV (10:40)
[2024-06-20] MEDS: Enoxaparin 40 MG/0.4 ML Syringe SC (10:41)
[2024-06-20] MEDS: Amox/Clavulanate 875 MG Tablet PO (10:46)
[2024-06-20 14:00] VITALS: BP 127/60; PULSE 79; RESP 18; TEMP 36.9; O2SAT 98
--- NOTE | 2024-06-20 17:37 | PN.SURG_ITS ---
Subjective Subjective Patient seen and examined during AM rounds and then again in the afternoon. She initially reported that she was tolerating a diet without nausea and had had several bowel movements. Additionally, she expressed a desire for discharge to home. On revisitation patient once again reported tolerance of her diet advancement no issues with transition to oral antibiotics. Objective Data Objective Data Vital Signs: Vital Signs Temp Pulse Resp BP Pulse Ox O2 Del Method O2 Flow Rate 98.4 F 79 18 127/60 H 98 Room Air 2 06/20/24 14:00 06/20/24 14:00 06/20/24 14:00 06/20/24 14:00 06/20/24 14:00 06/20/24 14:00 06/17/24 02:25 Oxygen Flow Rate (L/min) 2 Oxygen Delivery Method Room Air Weight: 169 lb 12.095 oz Body Mass Index (BMI) 29.1 Intake & Output: Intake and Output for Last 24 Hours 06/18/24 06/19/24 06/20/24 23:59 23:59 23:59 Intake Total 2483 / 2483 2210.67 / 2210.67 1010 / 1010 Output Total 220 / 220 46 / 46 110 / 110 Balance 2263 / 2263 2164.67 / 2164.67 900 / 900 Lab / Micro Data 06/20/24 05:04 06/20/24 05:04 Labs: Laboratory Results - last 24 hr 06/20/24 05:04: WBC 13.0 H, RBC 2.89 L, Hgb 9.2 L, Hct 27.8 L, MCV 96.2, MCH 31.8, MCHC 33.1, RDW Std Deviation 43.6, RDW Coeff of Willa 12.3, Plt Count 458 H, MPV 9.4, Immature Gran % (Auto) 0.800, Neut % (Auto) 76.5 H, Lymph % (Auto) 11.5 L, [place] % (Auto) 6.3, Eos % (Auto) 4.5, Baso % (Auto) 0.4, Absolute Neuts (auto) 9.9 H, Absolute Lymphs (auto) 1.49, Nucleated RBC % 0, Sodium 139, Potassium 3.3, Chloride 107, Carbon Dioxide 22.3, Anion Gap 9, BUN 14, Creatinine 0.58 L, Estim Creat Clear Calc 99.71, Est GFR (MDRD) Non-Af 101, BUN/Creatinine Ratio 23.7 H, Glucose 106 H, Calcium 7.5 L Micro: Microbiology 06/18/24 10:52 Aspirate - Abdominal Gram Stain - Final 06/18/24 10:52 Aspirate - Abdominal Wound Culture - Preliminary Escherichia coli Alpha hemolytic organism 06/18/24 10:52 Aspirate - Abdominal Anaerobic Culture - Preliminary Checking for anaerobes, further studies to follow. Physical Exam Const oriented x3 and no apparent distress Resp normal respiratory effort GI GI Narrative: Overweight with no significant abdominal distention. Right lower quadrant STELLA drain with serosanguineous output of a minimal volume. Midline laparotomy wound partially open still at the skin with some exposed subcutaneous tissue. Scant amount of serosanguineous drainage to the overlying abdominal pad. Patient abdomen is soft and minimally tender with palpation. Assessment & Plan Assessment/Plan (1) Mucocele, appendix: PLAN: Patient is 63-year-old female status post laparoscopic appendectomy converted to open ileocecectomy 06/16/2024. Pain is controlled and she is tolerated her diet advancements. As of the morning she remained on a restricted diet, however. Additionally, she remained on IV antibiotics and with an abdominal drain. ?Confirmed tolerance of transitional diet ?Hep-Lock IV ?Discontinue STELLA drain Encourage ambulation and I.S. use We will continue to monitor this patient Plan for discharge to home pending a verbal responses to the above changes in treatment plan. Anticipate patient will go home with ongoing oral antibiotic therapy. Christo Saba MD General Surgery Endocrine Surgery Pager: [facility] [address] [place] [address], [facility], [address] [place] [address] Office: [phone] Charges/Coding Visit Charges Inpatient E&M: 17658 Subs Hosp L2
--- NOTE | 2024-06-20 17:40 | CASEMGMT ---
NICA BOWERS NOTE: NICA BOWERS to room. Pt sitting up in chair, in room. Pt getting ready to discharge home. FWW has been delivered to her room. New Rx's have also been to her room. She denies having any further needs or questions. Shira CARRINGTONN NICA BOWERS
[2024-06-20 17:54] VITALS: BP 112/60; PULSE 78; RESP 18; TEMP 36.9; O2SAT 97
== END 2024-06-20 17:48 | disposition home or self-care (01) | DRG 331 ==
LOC: MS3 06-17 10:59 → EN 06-17 11:02 → MS3 06-17 11:02
PROVIDERS: Physician Assistant; Admitting Provider Surgery; Referring Provider Surgery; Visit Provider Surgery
PROC: 0DJD8ZZ Inspection of Lower Intestinal Tract, Via Natural or Artificial Opening Endoscopic (ICD-10-PCS; CPT 45378; principal; 2024-06-16 08:55)
PROC: 0DTJ4ZZ Resection of Appendix, Percutaneous Endoscopic Approach (ICD-10-PCS; CPT 44970; principal; 2024-06-16 14:10)
DX: K35.33 Acute appendicitis with perforation, localized peritonitis, and gangrene, with abscess (principal); D12.2 Benign neoplasm of ascending colon; Z87.891 Personal history of nicotine dependence; Z53.31 Laparoscopic surgical procedure converted to open procedure
CPT/HCPCS: 36415; 74177; 80048; 80053; 85025; 87070; 87075; 87077; 87186; 87205; 88108; 88305; 88309; 88313; 94668; Q9967; A4216; J2405